=== PATIENT | female | born 1950 | race Caucasian/White ===

== ENCOUNTER → 2016-12-27 | Outpatient (CLI) | payer OTHER ==
[~2016-12-27] MED LIST: ASPCH81X PO; ATOR-24 PO; CALC8.5C PO; CHOL100010 PO; DEXT1TAB50 PO; FLUT50SP37 NAE; FLVHFA110 INH; GLIM1TAB2 PO; HYDR25TA4 PO; LOSA1TAB38 PO; LYSI100014 PO; MONT1TAB5 PO; OMEP40CA41 PO; VNTHFA/IN INH
[2016-12-27 13:15] LABS: ALT/SGPT 30 U/L (12-78); AST/SGOT 15 U/L (15-37); BLOOD UREA NITROGEN 22 mg/dl (7-18); BUN/CREATININE RATIO 18.2 (10-20); CALCIUM 9.6 mg/dl (8.5-10.1); CARBON DIOXIDE 29 mmol/L (21-32); CHLORIDE 104 mmol/L (98-107); GLUCOSE 146 mg/dl (70-99); POTASSIUM 3.6 mmol/L (3.5-5.1); SODIUM 142 mmol/L (136-145)
[2016-12-27 13:17] LABS: ALKALINE PHOSPHATASE 112 U/L (45-117); CHOLESTEROL 167 mg/dl (0-200); CHOLESTEROL/HDL RATIO 2.8; HDL CHOLESTEROL 60 mg/dl; LDL CHOLESTEROL CALCULATED 80 mg/dl; TRIGLYCERIDES 136 mg/dl (0-150); VERY LOW DENSITY LIPOPROT CALC 27 mg/dl
[2016-12-27 13:23] LABS: ESTIMATED AVERAGE GLUCOSE 160 mg/dl; HA1C FLAG Normal (Normal)
[2016-12-27 13:43] LABS: RATIO 8.1 mcg/mg (0-30.0)
== END | disposition home or self-care (01) ==
LOC: C.LABMFLN 08:03
PROVIDERS: ATTEND Family Medicine
DX: I10 Essential (primary) hypertension (principal); E78.00 Pure hypercholesterolemia, unspecified; E11.9 Type 2 diabetes mellitus without complications; M81.0 Age-related osteoporosis without current pathological fracture

== ENCOUNTER → 2017-04-09 | Outpatient (CLI) | payer OTHER | END | disposition home or self-care (01) | LOC: C.LABMFLN 11:07 | PROVIDERS: ATTEND Family Medicine | DX: R35.0 Frequency of micturition (principal); R10.2 Pelvic and perineal pain ==

== ENCOUNTER → 2017-06-27 | Outpatient (CLI) | payer OTHER ==
[2017-06-27 14:32] LABS: BASO % 0.6 %; BASO ABS # 0.03 K/uL (0-0.2); COMPLETE YES; EOS % 2.5 %; HEMATOCRIT 42.3 % (37-47); IG% 0.2 %; LYMPH % 40.1 %; LYMPH ABS # 2.07 K/uL (1.2-3.4); MEAN CELL VOLUME 87.9 fL (80-100); MEAN CORPUSCULAR HEMOGLOBIN 29.9 pg (25-34); MEAN PLATELET VOLUME 10.5 fL (7.4-10.4); MONO % 7.4 %; NEUT % 49.2 %; PLATELET COUNT 250 K/uL (130-400); RED BLOOD COUNT 4.81 M/uL (4.2-5.4); WHITE BLOOD COUNT 5.16 K/uL (4.8-10.8)
[2017-06-27 14:56] LABS: ALT/SGPT 28 U/L (12-78); BLOOD UREA NITROGEN 25 mg/dl (7-18); BUN/CREATININE RATIO 20.7 (10-20); CALCIUM 9.6 mg/dl (8.5-10.1); CARBON DIOXIDE 25 mmol/L (21-32); CHLORIDE 104 mmol/L (98-107); CHOLESTEROL 170 mg/dl (0-200); GLUCOSE 133 mg/dl (70-99); POTASSIUM 3.7 mmol/L (3.5-5.1); SODIUM 140 mmol/L (136-145); TRIGLYCERIDES 101 mg/dl (0-150); VERY LOW DENSITY LIPOPROT CALC 20 mg/dl
[2017-06-27 15:08] LABS: ALB/GLOB RATIO 0.9 (0.9-2); ALKALINE PHOSPHATASE 109 U/L (45-117); AST/SGOT 14 U/L (15-37); CHOLESTEROL/HDL RATIO 3.1; HDL CHOLESTEROL 55 mg/dl; LDL CHOLESTEROL CALCULATED 95 mg/dl
[2017-06-28 08:04] LABS: ESTIMATED AVERAGE GLUCOSE 148 mg/dl; HA1C FLAG Normal (Normal)
--- NOTE | 2017-07-03 07:09 | CODING QUERY MEDICAL NECESSITY ---
SUPPORTING DIAGNOSIS NEEDED Dr. Mayers, A supporting diagnosis is required for the test/procedure performed on this patient in order for us to be reimbursed by the patient's insurance. Please provide a supporting diagnosis for the following test/procedure listed below next to the test name along with your signature. *If there is no additional diagnosis for this patient that would support the following test/procedure please document that below next to the test/procedure. Test(s)/Procedure(s) that require a supporting diagnosis: * ([id number]) VITAMIN D ASSAY DIAGNOSIS: DATE OF SERVICE: 06/27/17 Provider Signature: Date: Thank you Kang Cadet [facility] Information Management Once completed, please kindly fax back to [phone] For questions please call [phone]
== END | disposition home or self-care (01) ==
LOC: C.LABMFLN 08:19
PROVIDERS: ATTEND Family Medicine
DX: I10 Essential (primary) hypertension (principal); E78.00 Pure hypercholesterolemia, unspecified; E11.9 Type 2 diabetes mellitus without complications; R53.83 Other fatigue; E55.9 Vitamin D deficiency, unspecified

== ENCOUNTER → 2017-07-03 | Outpatient (CLI) | payer OTHER | END | disposition home or self-care (01) | LOC: C.PAPS 13:02 | PROVIDERS: ATTEND Family Medicine | DX: Z00.00 Encounter for general adult medical examination without abnormal findings (principal); R10.2 Pelvic and perineal pain ==

== ENCOUNTER → 2017-07-24 | Day surgery (SDC) | payer OTHER ==
[2017-07-16 11:32] VITALS: Ht 165.1 cm; Wt 88.2 kg
[~2017-07-24] VITALS: Ht 165.1 cm; Wt 88.2 kg
[~2017-07-24] MED LIST changes: +500ML BSS 0.3ML EPI 1:1000PF IRRIG ONE; +ACETAMINOPHEN 325 MG TAB PO PRN; +AMVISC PLUS 0.8ML SYRINGE INT OCU ONE; +ATROPINE SULFATE 0.1 MG/ML 5ML SYR IV PRN; +AcetaZOLAMIDE 250 MG TAB PO SCH; +BETAXOLOL HCL 0.25% OP SUSP PER DROP CHARGE OPR SCH; +BRIMONIDINE TART 0.2% OP SOLN PER DROP CHARGE ONE; +BSS FLUSH ONE; +ENDOCOAT 0.85ML SYRINGE INT OCU ONE; +EpHEDrine SULFATE INJ 50 MG/ML AMP IV PRN; +EpINEphrine INJ 1MG/ML AMP 1 MG/ML AMP ONE; +LACTATED RINGER'S 1000ML 500 ML IV SCH; +LIDOCAINE 4% OP SOLN DROP CHARGE ONE; +LIDOCAINE 4% OP SOLN DROP CHARGE OPR SCH; +LIDOCAINE HCL 1% MPF 2 ML VIAL ONE; +MIDAZOLAM HCL 1 MG/ML 2ML VIAL ONE; +MIX: 4ML BSS 1ML EPI 1:1000 PF INSTIL ONE; +MOXIFLOXACIN OPH SOLN PER DROP CHARGE ONE; +OCUCOAT 1 ML SOLN IO ONE; +ONDANSETRON INJ 2 MG/ML 2 ML VIAL IV PRN; +POVIDONE-IODINE OP SOLN 30 ML BTL ONE; +PROPARACAINE 0.5% OP SOLN PER DROP CHARGE OPR SCH; +TOBRAMYCIN/DEXAMETHASONE OPH OINT PER APPLN CHARGE ONE
--- NOTE | 2017-07-24 06:39 | History & Physical Bridge - [place] ---
H&P Re-Evaluation Bridge Note: I have examined the patient, reviewed the History & Physical and in the interval since the performance of the History & Physical I have noted the following changes of clinical significance: No changes noted
[2017-07-24] MEDS: PHENYLEPHRINE HCL 2.5% OP SOLN PER DROP CHARGE OPR SCH ×2 (06:43→06:52)
[2017-07-24] MEDS: TROPICAMIDE 1% OP SOLN PER DROP CHARGE OPR SCH ×2 (06:44→06:56)
[2017-07-24] MEDS: CYCLOPENTOLATE HCL 1% OP SOLN PER DROP CHARGE OPR SCH ×2 (06:45→06:55)
[2017-07-24] MEDS: MOXIFLOXACIN OPH SOLN PER DROP CHARGE OPR SCH ×2 (06:49→06:57)
--- NOTE | 2017-07-24 07:18 | Discharge Instructions-SurgCtr ---
Discharge Instructions Date of Service Jul 24, 2017. Visit Reason for Visit: Cataract Right Eye Discharge Discharge Diagnosis / Problem: lens implant left eye Discharge Goals Goal(s): Improve function Activity Recommendations Activity Limitations: resume your previous activity Lifting Limitations: no more than 10 pounds Exercise/Sports Limitations: gradually increase as tolerated May Resume Sexual Activity: when tolerated Shower/Bathe: tomorrow Driving or Machine Use: resume 1 day after discharge Anesthesia . Post Anesthesia Instructions: If you have had General Anesthesia or IV Sedation: * Do not drive today. * Resume driving when surgeon permits. * Do not make important decisions or sign legal documents today. * Call surgeon for: 1. Temperature elevations greater than 101 degrees F. 2. Uncontrollable pain. 3. Excessive bleeding. 4. Persistent nausea and vomiting. 5. Medication intolerance (nausea, vomiting or rash). * For nausea and vomiting use only clear liquids such as: tea, soda, bouillon until nausea subsides, then gradually increase diet as tolerated. * If you have any concerns or questions, call your surgeon's office. If physician is unavailable and it is an emergency, call 911 or go to the nearest emergency room. . Instructions / Follow-Up Instructions / Follow-Up ACTIVITY RECOMMENDATIONS: * Light activities. * Mild irritation and blurred vision are common for the first few days. * You may walk outside, read, watch television. * Redness around the white part of the eye is common. MEDICATIONS: Resume previous medications unless instructed otherwise by your surgeon. * Take white Diamox (Acetazolamide) tablet at 1 pm today. Start all eye drops at 1 pm today: * Eye drops (today and tomorrow): Prednisone - one drop in operative eye every 3 hours while awake Ofloxacin - one drop in operative eye every 3 hours while awake SPECIAL CARE INSTRUCTIONS: * Tape plastic shield over eye to sleep at night. Call your doctor at with any concerns or problems. FOLLOW UP VISIT: Follow-up with Dr Falk at [place] office as scheduled. Diet Recommendations Home Diet: no limitations Procedures Procedures Performed: cataract extraction with lens implant Pending Studies Studies pending at discharge: no Medical Emergencies . Who to Call and When: Medical Emergencies: If at any time you feel your situation is an emergency, please call 911 immediately. . Non-Emergent Contact Non-Emergency issues call your: Charter Representative Call Non-Emergent contact if: your pain is not controlled [phone] . . "Provider Documentation" section prepared by Pola Falk. .
--- NOTE | 2017-07-24 07:20 | [facility] Operative Report ---
Operative Report Date of Service Jul 24, 2017. Operative Report 1. PREOPERATIVE DIAGNOSIS: Senile nuclear cataract, right eye. 2. POSTOPERATIVE DIAGNOSIS: Senile nuclear cataract, right eye. 3. PROCEDURE: Phacoemulsification of right cataract with posterior chamber lens implant, type Bausch [employer] Lomb, model Hoya [id number], power +15.0 diopters. ANESTHESIA: Local standby. SURGEON: Dr. Falk. COMPLICATIONS: None. OPERATING TIME: 10 minutes. 4. OPERATION AND FINDINGS: DESCRIPTION OF PROCEDURE: The right pupil was dilated. The anesthetic was administered using a topical technique. The right eye was prepped and draped. A speculum was placed. A clear corneal incision was formed. The chamber was filled with Amvisc Plus and Endocoat. Epinephrine solution was used. A paracentesis was placed. A capsulorrhexis was performed. The nucleus was hydrodissected. The lens was removed with phacoemulsification. Time was 3.77 seconds. The aspiration unit was used to remove the cortex. The capsule was filled with Amvisc Plus. The lens implant was folded and placed into the capsule. The incision was hydrated. The Amvisc was aspirated. The wound was secure. The chamber was deep. The pupil was round. Brimonidine, TobraDex ointment and Vigamox solution were placed. The speculum was removed. The patient was returned to the Recovery Room in stable condition. I attest to the content of the Intraoperative Record and any orders documented therein. Any exceptions are noted below. The scribe's documentation has been prepared in my presence, under my direction and personally reviewed by me in its entirety. I confirm that the note above accurately reflects all work, treatment, procedures, and medical decision making performed by me. I personally scribed for Pola Falk M.D. (MARLON) on 07/24/17 at 07:20. Electronically submitted by Cecelia Grullon ([email or web address]).
--- NOTE | 2017-07-24 07:50 | Anesthesia Progress Nt - [facility] ---
Anesthesia Post Op Note Date & Time Jul 24, 2017 at 07:50 Vital Signs Pain Intensity: 0 Vital Signs Past 12 Hours Date Time Temp Pulse Resp B/P (MAP) Pulse Ox O2 Delivery O2 Flow Rate FiO2 07/24/17 07:22 36.3 67 16 147/70 (95) 97 Room Air Notes Mental Status: alert / awake / arousable, participated in evaluation Pt Amnestic to Procedure: Yes Nausea / Vomiting: adequately controlled Pain: adequately controlled Airway Patency, RR, SpO2: stable & adequate BP & HR: stable & adequate Hydration State: stable & adequate Anesthetic Complications: no major complications apparent
[2017-07-24 07:57] VITALS: BP 123/69; PULSE 62; O2SAT 98
== END | disposition home or self-care (01) ==
LOC: X.SURG 06:07
PROVIDERS: ATTEND Specialist
DX: H25.11 Age-related nuclear cataract, right eye (principal); I10 Essential (primary) hypertension; E03.9 Hypothyroidism, unspecified; Z79.82 Long term (current) use of aspirin; Z79.899 Other long term (current) drug therapy

== ENCOUNTER → 2017-08-07 | Day surgery (SDC) | payer OTHER ==
[2017-07-31 10:09] VITALS: Ht 165.1 cm; Wt 88.2 kg
[~2017-08-07] VITALS: Ht 165.1 cm; Wt 88.2 kg
[~2017-08-07] MED LIST changes: +BETAXOLOL HCL 0.25% OP SUSP PER DROP CHARGE OPL SCH; -BETAXOLOL HCL 0.25% OP SUSP PER DROP CHARGE OPR SCH; +CYCLOPENTOLATE HCL 1% OP SOLN PER DROP CHARGE OPL SCH; +LIDOCAINE 4% OP SOLN DROP CHARGE OPL SCH; -LIDOCAINE 4% OP SOLN DROP CHARGE OPR SCH; +MOXIFLOXACIN OPH SOLN PER DROP CHARGE OPL SCH; -ONDANSETRON INJ 2 MG/ML 2 ML VIAL IV PRN; +PHENYLEPHRINE HCL 2.5% OP SOLN PER DROP CHARGE OPL SCH; +PROPARACAINE 0.5% OP SOLN PER DROP CHARGE OPL SCH; -PROPARACAINE 0.5% OP SOLN PER DROP CHARGE OPR SCH; +TROPICAMIDE 1% OP SOLN PER DROP CHARGE OPL SCH
[2017-08-07] MEDS: PHENYLEPHRINE HCL 2.5% OP SOLN PER DROP CHARGE OPL SCH ×2 (09:09→09:14)
[2017-08-07] MEDS: TROPICAMIDE 1% OP SOLN PER DROP CHARGE OPL SCH ×2 (09:11→09:16)
[2017-08-07] MEDS: CYCLOPENTOLATE HCL 1% OP SOLN PER DROP CHARGE OPL SCH ×2 (09:12→09:17)
[2017-08-07] MEDS: MOXIFLOXACIN OPH SOLN PER DROP CHARGE OPL SCH ×2 (09:13→09:29)
--- NOTE | 2017-08-07 10:11 | Discharge Instructions-SurgCtr ---
Discharge Instructions Date of Service Aug 07, 2017. Visit Reason for Visit: Cataract Left Eye Discharge Discharge Diagnosis / Problem: lens implant left eye Discharge Goals Goal(s): Improve function Activity Recommendations Activity Limitations: resume your previous activity Lifting Limitations: no more than 10 pounds Exercise/Sports Limitations: gradually increase as tolerated May Resume Sexual Activity: when tolerated Shower/Bathe: tomorrow Driving or Machine Use: resume 1 day after discharge Anesthesia . Post Anesthesia Instructions: If you have had General Anesthesia or IV Sedation: * Do not drive today. * Resume driving when surgeon permits. * Do not make important decisions or sign legal documents today. * Call surgeon for: 1. Temperature elevations greater than 101 degrees F. 2. Uncontrollable pain. 3. Excessive bleeding. 4. Persistent nausea and vomiting. 5. Medication intolerance (nausea, vomiting or rash). * For nausea and vomiting use only clear liquids such as: tea, soda, bouillon until nausea subsides, then gradually increase diet as tolerated. * If you have any concerns or questions, call your surgeon's office. If physician is unavailable and it is an emergency, call 911 or go to the nearest emergency room. . Instructions / Follow-Up Instructions / Follow-Up ACTIVITY RECOMMENDATIONS: * Light activities. * Mild irritation and blurred vision are common for the first few days. * You may walk outside, read, watch television. * Redness around the white part of the eye is common. MEDICATIONS: Resume previous medications unless instructed otherwise by your surgeon. * Take white Diamox (Acetazolamide) tablet at 1 pm today. Start all eye drops at 1 pm today: * Eye drops (today and tomorrow): Prednisone - one drop in operative eye every 3 hours while awake Ofloxacin - one drop in operative eye every 3 hours while awake SPECIAL CARE INSTRUCTIONS: * Tape plastic shield over eye to sleep at night. Call your doctor at with any concerns or problems. FOLLOW UP VISIT: Follow-up with Dr Falk at [place] office as scheduled. Diet Recommendations Home Diet: no limitations Procedures Procedures Performed: cataract extractions with lens implant Pending Studies Studies pending at discharge: no Medical Emergencies . Who to Call and When: Medical Emergencies: If at any time you feel your situation is an emergency, please call 911 immediately. . Non-Emergent Contact Non-Emergency issues call your: [employer] Tier Call Non-Emergent contact if: your pain is not controlled [phone] . . "Provider Documentation" section prepared by Pola Falk. .
--- NOTE | 2017-08-07 10:12 | [facility] Operative Report ---
Operative Report Date of Service Aug 07, 2017. Operative Report 1. PREOPERATIVE DIAGNOSIS: Senile nuclear cataract, left eye. 2. POSTOPERATIVE DIAGNOSIS: Senile nuclear cataract, left eye. 3. PROCEDURE: Phacoemulsification of left cataract with posterior chamber lens implant, type Bausch & Lomb, model Hoya [id number], power +18.0 diopters. ANESTHESIA: Local standby. SURGEON: Dr. Falk. COMPLICATIONS: None. OPERATING TIME: 10 minutes. 4. OPERATION AND FINDINGS: DESCRIPTION OF PROCEDURE: The left pupil was dilated. The anesthetic was administered using a topical technique. The left eye was prepped and draped. A speculum was placed. A clear corneal incision was formed. The chamber was filled with Amvisc Plus and Endocoat. Epinephrine solution was used. A paracentesis was placed. A capsulorrhexis was performed. The nucleus was hydrodissected. The lens was removed with phacoemulsification. Time was 2.17 seconds. The aspiration unit was used to remove the cortex. The capsule was filled with Amvisc Plus. The lens implant was folded and placed into the capsule. The incision was hydrated. The Amvisc was aspirated. The wound was secure. The chamber was deep. The pupil was round. Brimonidine, TobraDex ointment and Vigamox solution were placed. The speculum was removed. The patient was returned to the Recovery Room in stable condition. I attest to the content of the Intraoperative Record and any orders documented therein. Any exceptions are noted below. The scribe's documentation has been prepared in my presence, under my direction and personally reviewed by me in its entirety. I confirm that the note above accurately reflects all work, treatment, procedures, and medical decision making performed by me. I personally scribed for Pola Falk M.D. (MARLON) on 08/07/17 at 10:12. Electronically submitted by Cecelia Grullon ([email or web address]).
[2017-08-07 10:15] VITALS: TEMP 36.5
--- NOTE | 2017-08-07 10:30 | Anesthesia Progress Nt - [facility] ---
Anesthesia Post Op Note Date & Time Aug 07, 2017 at 10:30 Vital Signs Pain Intensity: 4.0 Vital Signs Past 12 Hours Date Time Temp Pulse Resp B/P (MAP) Pulse Ox O2 Delivery O2 Flow Rate FiO2 08/07/17 10:15 36.5 61 16 117/74 (88) 99 Room Air 08/07/17 09:00 36.6 69 18 152/86 (108) 95 Room Air Notes Mental Status: alert / awake / arousable, participated in evaluation Pt Amnestic to Procedure: Yes Nausea / Vomiting: adequately controlled Pain: adequately controlled Airway Patency, RR, SpO2: stable & adequate BP & HR: stable & adequate Hydration State: stable & adequate Anesthetic Complications: no major complications apparent
[2017-08-07 10:40] VITALS: BP 126/76; PULSE 54; O2SAT 99
== END | disposition home or self-care (01) ==
LOC: X.SURG 08:28
PROVIDERS: ATTEND Specialist
DX: H25.12 Age-related nuclear cataract, left eye (principal); I10 Essential (primary) hypertension

== ENCOUNTER → 2017-09-05 | Outpatient (CLI) | payer OTHER ==
[~2017-09-05] MED LIST changes: -500ML BSS 0.3ML EPI 1:1000PF IRRIG ONE; -ACETAMINOPHEN 325 MG TAB PO PRN; -AMVISC PLUS 0.8ML SYRINGE INT OCU ONE; -ATROPINE SULFATE 0.1 MG/ML 5ML SYR IV PRN; -AcetaZOLAMIDE 250 MG TAB PO SCH; -BETAXOLOL HCL 0.25% OP SUSP PER DROP CHARGE OPL SCH; -BRIMONIDINE TART 0.2% OP SOLN PER DROP CHARGE ONE; -BSS FLUSH ONE; -CYCLOPENTOLATE HCL 1% OP SOLN PER DROP CHARGE OPL SCH; -ENDOCOAT 0.85ML SYRINGE INT OCU ONE; -EpHEDrine SULFATE INJ 50 MG/ML AMP IV PRN; -EpINEphrine INJ 1MG/ML AMP 1 MG/ML AMP ONE; -LACTATED RINGER'S 1000ML 500 ML IV SCH; -LIDOCAINE 4% OP SOLN DROP CHARGE ONE; -LIDOCAINE 4% OP SOLN DROP CHARGE OPL SCH; -LIDOCAINE HCL 1% MPF 2 ML VIAL ONE; -MIDAZOLAM HCL 1 MG/ML 2ML VIAL ONE; -MIX: 4ML BSS 1ML EPI 1:1000 PF INSTIL ONE; -MOXIFLOXACIN OPH SOLN PER DROP CHARGE ONE; -MOXIFLOXACIN OPH SOLN PER DROP CHARGE OPL SCH; -OCUCOAT 1 ML SOLN IO ONE; -PHENYLEPHRINE HCL 2.5% OP SOLN PER DROP CHARGE OPL SCH; -POVIDONE-IODINE OP SOLN 30 ML BTL ONE; -PROPARACAINE 0.5% OP SOLN PER DROP CHARGE OPL SCH; -TOBRAMYCIN/DEXAMETHASONE OPH OINT PER APPLN CHARGE ONE; -TROPICAMIDE 1% OP SOLN PER DROP CHARGE OPL SCH
--- NOTE | 2017-09-05 13:11 | DIAGNOSTIC IMAGING REPORT ---
ART DOP LOWER EXT BILAT CLINICAL HISTORY: 67 years-old Female presenting with RAYNAUD'S SYNDROME. TECHNIQUE: Real-time grayscale and color and spectral Doppler ultrasound imaging of the bilateral lower extremity arteries was performed. Measurements calculated based on NASCET criteria. COMPARISON: None. FINDINGS: Right: Common femoral artery: Patent. Peak systolic velocity 120 cm/s. Superficial femoral artery: Patent. Peak systolic velocity 96 cm/s. Popliteal artery: Patent. Peak systolic velocity 77 cm/s. Anterior tibial artery: Patent. Peak systolic velocity 54 cm/s. Posterior tibial artery: Patent. Peak systolic velocity 87 cm/s. Dorsalis pedis: Patent. Peak systolic velocity 47 cm/s. Peroneal artery: Patent. Peak systolic velocity 53 cm/s. Left: Common femoral artery: Patent. Peak systolic velocity 91 cm/s. Superficial femoral artery: Patent. Peak systolic velocity 88 cm/s. Popliteal artery: Patent. Peak systolic velocity 69 cm/s. Anterior tibial artery: Patent. Peak systolic velocity 63 cm/s. Posterior tibial artery: Patent. Peak systolic velocity 74 cm/s. Dorsalis pedis: Patent. Peak systolic velocity 64 cm/s. Peroneal artery: Patent. Peak systolic velocity 48 cm/s. FLOR Brachial: Right: 138 mmHg, Left: 134 mmHg. Ankle (Posterior tibial): Right: 155 mmHg, Left: 139 mmHg. Ankle (Dorsalis pedis): Right: 139 mmHg, Left: 147 mmHg. Ankle/Brachial Index: Right: 1.01-1.12, Left: 1.01-1.07. Reference ranges: Normal FLOR 1.0-1.4; 0.9-0.99 borderline; less than 0.9 abnormal. IMPRESSION: 1. No hemodynamically significant stenosis seen within the lower extremity arteries. 2. Normal ankle-brachial indices. Electronically signed by: Jamil Zendejas M.D. 09/05/2017 1:10 PM Dictated Date/Time: 09/05/2017 1:07 PM
== END | disposition home or self-care (01) ==
LOC: C.ULTR 11:46
PROVIDERS: ATTEND Podiatrist
DX: E11.51 Type 2 diabetes mellitus with diabetic peripheral angiopathy without gangrene (principal); I73.00 Raynaud's syndrome without gangrene

== ENCOUNTER → 2018-01-21 | Outpatient (CLI) | payer OTHER ==
[2018-01-21 14:50] LABS: ALBUMIN 3.9 gm/dl (3.4-5.0); ALT/SGPT 25 U/L (12-78); AST/SGOT 16 U/L (15-37); BLOOD UREA NITROGEN 28 mg/dl (7-18); CALCIUM 9.3 mg/dl (8.5-10.1); CARBON DIOXIDE 27 mmol/L (21-32); CREATININE 1.27 mg/dl (0.60-1.20); GLUCOSE 130 mg/dl (70-99); POTASSIUM 3.3 mmol/L (3.5-5.1); SODIUM 137 mmol/L (136-145)
[2018-01-21 14:55] LABS: ALKALINE PHOSPHATASE 112 U/L (45-117); CHOLESTEROL 186 mg/dl (0-200); LDL CHOLESTEROL CALCULATED 101 mg/dl; TOTAL PROTEIN 8.2 gm/dl (6.4-8.2)
[2018-01-21 15:56] LABS: CREATININE RANDOM URINE 44.8 mg/dl
== END | disposition home or self-care (01) ==
LOC: C.LABMFLN 08:57
PROVIDERS: ATTEND Family Medicine
DX: E78.00 Pure hypercholesterolemia, unspecified (principal); E11.9 Type 2 diabetes mellitus without complications; M81.0 Age-related osteoporosis without current pathological fracture

== ENCOUNTER → 2018-02-17 | Outpatient (CLI) | payer OTHER | END | disposition home or self-care (01) | LOC: C.LABMFLN 10:32 | PROVIDERS: ATTEND Family Medicine | DX: E87.6 Hypokalemia (principal) ==

== ENCOUNTER → 2018-07-08 | Outpatient (CLI) | payer OTHER ==
[2018-07-08 13:36] LABS: ALBUMIN 3.7 gm/dl (3.4-5.0); ALKALINE PHOSPHATASE 91 U/L (45-117); ALT/SGPT 30 U/L (12-78); AST/SGOT 18 U/L (15-37); BLOOD UREA NITROGEN 30 mg/dl (7-18); CALCIUM 9.5 mg/dl (8.5-10.1); CARBON DIOXIDE 26 mmol/L (21-32); CHOLESTEROL 145 mg/dl (0-200); CREATININE 1.23 mg/dl (0.60-1.20); GLUCOSE 131 mg/dl (70-99); LDL CHOLESTEROL CALCULATED 67 mg/dl; POTASSIUM 3.9 mmol/L (3.5-5.1); SODIUM 138 mmol/L (136-145); TOTAL PROTEIN 7.4 gm/dl (6.4-8.2)
== END ==
LOC: C.LABMFLN 07:31
PROVIDERS: ATTEND Family Medicine
DX: E78.00 Pure hypercholesterolemia, unspecified (principal); E11.9 Type 2 diabetes mellitus without complications; M81.0 Age-related osteoporosis without current pathological fracture; J45.909 Unspecified asthma, uncomplicated

== ENCOUNTER 2025-08-26 11:20 | Inpatient (IN) ==
--- NOTE | 2025-08-26 11:48 | Emergency Department Note ---
Impression & Plan Back pain, Ambulatory dysfunction ED Provider Note NAME: NOHEMY WAGNER AGE: 75 SEX: F : 1950 ARRIVES VIA: Walk-In INFORMANT: Patient ED PROVIDER(S): Lawrence Rasheed DO CHIEF COMPLAINT: Left back pain radiating into the leg HPI: Patient is a 74-year-old female with a past medical history of cholelithiasis, back pain, sinusitis, GERD, lymphadenopathy who presents to the ER for left lower back pain radiating into her left thigh and leg. This started last Saturday. She denies any weakness or numbness. Pain significantly worse with twisting, turning, and bending. She is able to urinate and move her bowels. No chest pain or shortness of breath. No dysuria, urgency, or frequency. She notes she was seen by her PCP given Toradol and discharged. She was seen at [facility] yesterday had CTs and was given Percocet and steroids and discharged and still is unable to get around at home due to pain. She called her doctor and once again referred her back to the ER. She notes that her doctor thought that she needed an MRI but did not order one for her. ADDITIONAL HISTORY OBTAINED: Per HPI Chronic Medical/Social Conditions Affecting Care: Per HPI PAST MEDICAL HISTORY:See Below PAST SURGICAL HISTORY:See Below FAMILY HISTORY:See Below SOCIAL HISTORY:See Below HOME MEDICATIONS:See Below ALLERGIES:See Below VITALS:See Below PHYSICAL EXAMINATION: GENERAL: Sitting up in bed, alert, well appearing, well nourished, no distress, non-toxic EYE EXAM: normal conjunctiva. PERRL and EOM's grossly intact. OROPHARYNX: no exudate, no erythema, lips, buccal mucosa, and tongue normal and mucous membranes are moist NECK: supple, no nuchal rigidity, no adenopathy, non-tender LUNGS: Clear to auscultation. Normal chest wall mechanics HEART: no murmurs, S1 normal and S2 normal ABDOMEN: abdomen soft, non-tender, normo-active bowel sounds, no masses, no rebound or guarding. BACK: Back is symmetrical on inspection and there is no deformity, no midline tenderness, no CVA tenderness. SKIN: no rashes and no bruising UPPER EXTREMITIES: upper extremities are grossly normal. LOWER EXTREMITIES: No pitting edema. NEURO EXAM: Normal sensorium, cranial nerves II-XII intact, normal speech, no gross weakness of arms, no weakness of legs. No drift. Finger to nose intact. Gross sensation intact. MEDICAL DECISION MAKING: Patient is a 75-year-old female with a past medical history of back pain, GERD, renal insufficiency who presents to the ER for back pain which is present since last Saturday. She was seen on 2 different occasions for this back pain that is her third visit. She notes pain is severe and she cannot sleep all night. She having trouble getting up and moving around. She was using Percocet last night and it was not touching her pain in combination with steroids. She has been having vomiting and has a very upset stomach. Denies any focal weakness or numbness. No fevers. No red flags. No trauma. External records were reviewed from [facility] from [place] on 08/25/2025 at 9:[address] abdomen pelvis without any acute pathology and x-rays of the hip with arthritis bilaterally. Patient was given multiple dose of IV narcotics as when she presented she was shaking and pain. Pressures were initially 200s. They have trended down. Case was discussed with the hospitalist for further evaluation management and treatment. Consults/Care Managements Discussions: Per [facility] Triage Nursing notes reviewed. Limited review of prior medical records performed Vital Signs: reviewed and remarkable for HTN Differential diagnosis: Musculoskeletal, disc herniation, fracture, metastatic disease, cord compression, discitis, sciatica, cauda equina, infection, aortic disease, renal colic, gastrointestinal, as well as other pathologies. ER treatment provided: See below Diagnostics interpreted by me include EKG and cardiac monitoring as listed below: -Cardiac Monitoring: An order was placed for continuous cardiac monitoring. The monitor shows a rate of 80 with sinus rhythm. -ECG: none -Laboratory studies:Interpreted by me as stated above in MDM and shown below. Imaging studies: Xrays: As interpreted by me: X-rays of lumbar spine showed no acute fracture or dislocation CTs show: none Procedures:none Critical Care: None Past Med/Surg History Problem List (Updated 08/26/25 @ 14:42 by Lawrence Rasheed DO) Ambulatory dysfunction (Acute) Back pain (Acute) Vomiting Intractable low back pain Dupuytrens contracture Trigger finger, left middle finger Cholelithiasis Chest pain (Acute) Vitamin B 12 deficiency Allergic rhinitis due to dust mite Allergic rhinitis due to pollen Mid back pain Diaphoresis Alopecia Right low back pain Intermittent palpitations Onychomycosis Low back pain Chronic right hip pain Asthma COVID-19 virus infection Acute sinusitis Osteoarthritis of right knee Bilateral hip pain Inflamed seborrheic keratosis Changing skin lesion Dysphagia Chronic GERD Had EGD with esophageal dilation 09/24/2024. Colon cancer screening Inflamed seborrheic keratosis Hypothyroidism Skin lesion of left ear Chronic sinusitis LAD (lymphadenopathy), anterior cervical Renal cysts, acquired, bilateral Left kidney mass Shingles Asymptomatic microscopic hematuria Flank pain Acute renal insufficiency Hypertension Asymptomatic age-related postmenopausal state Encounter for mammogram to establish baseline mammogram Medicare annual wellness visit, subsequent Left hip pain Left knee pain Memory loss Encounter for screening mammogram for high-risk patient Medicare annual wellness visit, subsequent Encounter for gynecological examination without abnormal finding History of benign ovarian tumor ovarian fibroma, TLH/BSO 01/2019 Right lower quadrant abdominal pain Medicare annual wellness visit, subsequent Adjustment reaction (Acute) Allergic rhinitis (Acute) Asthma, mild intermittent (Acute) Cataract, bilateral (Acute) Cheilitis (Acute) Controlled diabetes mellitus with chronic kidney disease (Acute) GERD without esophagitis (Acute) Hypercholesterolemia (Acute) Benign essential hypertension (Acute) Hypokalemia (Acute) Left shoulder pain (Acute) Lumbar radiculopathy (Acute) Migraine headache (Acute) Mixed incontinence urge and stress (Acute) Osteoporosis (Acute) Peripheral neuropathy (Acute) Postmenopausal atrophic vaginitis (Acute) Seborrheic dermatitis of scalp (Acute) Visit for screening mammogram (Acute) Ingrown nail of great toe of right foot (Acute) Acquired hallux valgus of right foot (Acute) Type 2 diabetes mellitus with diabetic neuropathy (Acute) Hallux valgus (acquired), left foot (Acute) Medical History Chronic ulcer of right great toe Ovarian fibroma Surgical History Trigger finger Hx of bilateral salpingo-oophorectomy History of robot-assisted laparoscopic hysterectomy Status post repair of nerve History of tonsillectomy H/O shoulder replacement H/O oral surgery History of carpal tunnel release Family History Other Brain cancer Breast cancer Cervical cancer Colorectal cancer Diabetes Endometriosis Heart disease Hepatic disorder Hyperlipidemia Hypertension Oral cancer Ovarian cancer Rectal cancer Uterine cancer Social History Smoking Status: Never smoker Hx Alcohol Use: Yes Alcohol type: wine Hx Substance Use: No Preferred Language: Lao Communication Ability: Effective Visual Impairment: No Limitations Hearing Ability: Normal Tugboat Pilot Required: No Beliefs That Will Affect Care: None marital status: Current Living Situation: Spouse current occupational status: employed 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 Feels Safe at Home: Yes Childhood Exposure to Second-Hand Smoke: Yes caffeine: No Dental Care, Regularly: Yes Physical Activity Frequency: 1-2 Times per Week Seatbelt Use: always Allergies Allergies Allergy/AdvReac Type Severity Reaction Status Date / Time pneumococcal vaccine Allergy Intermediate ARM Verified 08/23/25 15:42 SWELLING AT INSERTION erythromycin base Allergy Unknown "DOESN'T Verified 08/23/25 15:42 REMEMBER" lisinopril Allergy Unknown "DOESN'T Verified 08/23/25 15:42 REMEMBER" propoxyphene Allergy Unknown "UNSURE" Verified 08/23/25 15:42 telithromycin Allergy Unknown "UNSURE" Verified 08/23/25 15:42 benzonatate AdvReac Intermediate SWEATING/SICK/HEART Verified 08/23/25 15:42 RACES Home Meds Home Medications Medication Instructions Recorded Confirmed cholecalciferol (vitamin D3) 25 25 mcg PO DAILY 08/17/24 08/26/25 mcg (1,000 unit) capsule aspirin 81 mg tablet,delayed 81 mg PO 3XWK 02/17/25 08/26/25 release (Adult Aspirin Regimen) cyanocobalamin (vitamin B-12) 5,000 mcg sublingual DAILY 03/16/25 08/26/25 5,000 mcg/mL sublingual drops (Vitamin B-12) fluticasone propionate 110 2 puff inhalation QAM 08/26/25 08/26/25 mcg/actuation HFA aerosol inhaler Previous Rx's Medication Instructions Recorded blood-glucose meter ([employer] #1 ea 03/03/20 Ultra2 Meter kit) blood sugar diagnostic #100 ea 07/17/21 lancets 33 gauge (OneTouch Delica #100 ea 07/17/21 Lancets) lysine 1,000 mg tablet 1,000 mg PO DAILY #90 tabs 08/18/21 albuterol sulfate 90 mcg/actuation 2 puff inhalation Q4H PRN 02/01/22 aerosol inhaler shortness of breath or wheezing #25.5 grams losartan 100 mg tablet 100 mg PO DAILY #90 tabs 02/17/24 atorvastatin 40 mg tablet 40 mg PO DAILY #90 tabs 02/24/24 celecoxib 200 mg capsule (Celebrex) 200 mg PO PRN #90 caps 08/24/24 esomeprazole magnesium 40 mg 40 mg PO DAILY #90 caps 03/29/25 capsule,delayed release hydrochlorothiazide 25 mg tablet 12.5 mg (1/2 x 25 mg) PO DAILY #45 05/19/25 tabs metformin 500 mg tablet,extended 500 mg PO DAILY #90 tabs 08/04/25 release 24 hr potassium chloride 10 mEq 10 meq PO DAILY #90 tabs 08/04/25 tablet,extended release azelastine 137 mcg (0.1 %) nasal See Rx Instructions .Route 08/12/25 spray .COMPLEX #30 mL glimepiride 1 mg tablet 1 mg PO .COMPLEX #270 tabs 08/12/25 lidocaine 4 % topical patch 1 patch topical DAILY PRN pain #30 08/26/25 ea ondansetron 4 mg disintegrating 4 mg PO Q8H PRN nausea and 08/26/25 tablet vomiting #10 tabs oxycodone-acetaminophen 5 mg-325 1 tab PO Q8H PRN pain #6 tabs 08/26/25 mg tablet prednisone 10 mg tablet 20 mg (2 x 10 mg) PO DAILY 7 days 08/26/25 #14 tabs Results & Data (ED) Vital Signs Vital Signs - 24 hr 08/26/25 11:29 08/26/25 12:32 08/26/25 13:15 Temperature 36.3 C L Temperature Source Temporal Artery Scan Pulse Rate 65 Pulse Rate [Apical] 82 Respiratory Rate 16 20 Blood Pressure 201/128 H Blood Pressure [Left Arm] 172/86 H Blood Pressure Mean 152 Blood Pressure Mean [Left Arm] 114 Pulse Oximetry 100 98 92 Oxygen Delivery Method Room Air Room Air Room Air Sepsis Recent Fever Within 48 Hours No Sepsis New/Unexplained Change in Mental Status No Sepsis Action Taken by Nursing No Action Required 08/26/25 13:44 Temperature Temperature Source Pulse Rate 50 L Pulse Rate [Apical] Respiratory Rate Blood Pressure Blood Pressure [Left Arm] Blood Pressure Mean Blood Pressure Mean [Left Arm] Pulse Oximetry Oxygen Delivery Method Sepsis Recent Fever Within 48 Hours Sepsis New/Unexplained Change in Mental Status Sepsis Action Taken by Nursing Laboratory Data 08/26/25 11:49 08/26/25 11:49 Lab Results 08/26/25 08/26/25 Range/Units 11:49 12:00 WBC 7.06 (4.8-10.8) K/ul RBC 4.40 (4.20-5.40) M/uL Hgb 12.6 (12.0-16.0) g/dl Hct 38.7 (37.0-47.0) % MCV 88.0 (80.0-100.0) fL MCH 28.6 (25.0-34.0) pg MCHC 32.6 (32.0-36.0) g/dL RDW Std Deviation 43.6 (36.4-46.3) fL RDW Coeff of Aj 13.5 (11.5-14.5) % Plt Count 261 (130-400) K/uL MPV 10.0 (9.4-12.4) fL Immature Gran % (Auto) 0.4 % Neut % (Auto) 60.9 % Lymph % (Auto) 31.4 % Emmet % (Auto) 6.5 % Eos % (Auto) 0.4 % Baso % (Auto) 0.4 % Neut # (Auto) 4.29 (1.40-6.50) K/uL Lymph # (Auto) 2.22 (1.20-3.40) K/uL Emmet # (Auto) 0.46 (0.11-0.59) K/uL Eos # (Auto) 0.03 (0.00-0.50) K/uL Baso # (Auto) 0.03 (0.00-0.20) K/uL Immature Gran # (Auto) 0.03 (0.01-0.20) K/uL Sodium 136 (136-145) mmol/L Potassium 3.8 (3.5-5.1) mmol/L Chloride 101 (98-107) mmol/L Carbon Dioxide 24 (21-32) mmol/L Anion Gap 11 (3-11) BUN 31 H (6-23) mg/dl Creatinine 1.33 H (0.6-1.2) mg/dl Est Cr Clr Drug Dosing Not Reportable eGFR 41.21 BUN/Creatinine Ratio 23.3 H (10-20) Glucose 99 (70-99(Fasting)) mg/dl Calcium 10.2 (8.6-10.3) mg/dl Total Bilirubin 0.5 (0.2-1.0) mg/dl AST 24 (13-39) U/L ALT 22 (7-52) U/L Alkaline Phosphatase 81 (34-104) U/L Total Protein 8.3 (6.0-8.3) gm/dl Albumin 4.5 (3.4-5.0) gm/dl Globulin 3.8 (2.5-4.0) gm/dl Albumin/Globulin Ratio 1.2 (0.9-2) Lipase 12 (11-82) U/L Urine Color Yellow Urine Appearance Clear (Clear) Urine pH 7.0 (4.5-7.5) Ur Specific [place] 1.013 (1.000-1.030) Urine Protein Negative (Negative) Urine Glucose (UA) Negative (Negative) Urine Ketones Negative (Negative) Urine Blood Negative (Negative) Urine Nitrite Negative (Negative) Urine Bilirubin Negative (Negative) Urine Urobilinogen Negative (Negative) Ur Leukocyte Esterase Negative (Negative) Urine Comment Administered Medications Discontinued Medications Sodium Chloride (Nss) 1,000 mls @ 999 mls/hr IV .Q1H1M ONE Stop: 08/26/25 13:25 Last Admin: 08/26/25 12:37 Dose: 999 mls/hr Documented By: CRUZ Metoclopramide HCl (Metoclopramide Hcl Inj 5 Mg/Ml 2 Ml Vial) 10 mg IV NOW STA Stop: 08/26/25 12:25 Last Admin: 08/26/25 12:37 Dose: 10 mg Documented By: CRUZ Morphine Sulfate (Morphine Sulfate 4 Mg/Ml 1 Ml Carp\\Vial) 4 mg IV NOW STA Stop: 08/26/25 11:42 Last Admin: 08/26/25 11:54 Dose: 4 mg Documented By: MERYL Morphine Sulfate (Morphine Sulfate 4 Mg/Ml 1 Ml Carp\\Vial) 4 mg IV NOW STA Stop: 08/26/25 12:25 Last Admin: 08/26/25 12:37 Dose: 4 mg Documented By: CRUZ Ondansetron HCl (Ondansetron Inj 2 Mg/Ml 2 Ml Vial) 4 mg IV NOW STA Stop: 08/26/25 11:42 Last Admin: 08/26/25 11:54 Dose: 4 mg Documented By: MERYL Imaging Data Radiologist's Impression: Lumbar Spine X-Ray 08/26/25 11:57 XR lumbar spine 2-3V CLINICAL HISTORY: back pain COMPARISON STUDY: None FINDINGS: There is diffuse degenerative disc disease and facet degeneration most advanced at L4-5 and L5-S1. There is grade 1 anterolisthesis of L4 on 5. No fracture seen. IMPRESSION: 1. No fracture seen. 2. Lumbar degenerative changes. ACT 112: Negative or not required by law. Electronically signed by: Tayo Chandra M.D. 08/26/2025 12:28 PM Discharge Plan Visit Data Chief Complaint: Pain (Generalized) Stated Complaint: PAIN IN L HIP DOWN LEG TO FOOT, BACK PAIN ED Provider: Lawrnece Rasheed Discharge Problem: Back pain, Ambulatory dysfunction Condition: Fair Forms Stand Alone Forms: [facility] go2 media Prescriptions Prescriptions: No Action (DME) blood-glucose meter [OneTouch Ultra2 Meter] Kit See Rx Instructions .ROUTE .MEDSUPPLY Qty: 1 0RF Rx Instructions: Check blood sugar once daily dx :E11.40 (DME) blood sugar diagnostic Strip See Rx Instructions .ROUTE .MEDSUPPLY Qty: 100 3RF Rx Instructions: check blood sugar once daily dx E11.40 (DME) lancets [OneTouch Delica Lancets] 33 gauge misc See Rx Instructions .ROUTE .MEDSUPPLY Qty: 100 5RF Rx Instructions: Check BS once daily Dx E11.9 lysine 1,000 mg tablet 1,000 mg PO DAILY Qty: 90 3RF losartan 100 mg tablet 100 mg PO DAILY Qty: 90 3RF atorvastatin 40 mg tablet 40 mg PO DAILY Qty: 90 3RF celecoxib [Celebrex] 200 mg capsule 200 mg PO PRN Qty: 90 3RF esomeprazole magnesium 40 mg capsule,delayed release(DR/EC) 40 mg PO DAILY Qty: 90 3RF potassium chloride 10 mEq tablet extended release 10 meq PO DAILY Qty: 90 3RF Rx Instructions: FILL COATED POTASSIUM TABLETS easier to swallow metformin 500 mg tablet extended release 24 hr 500 mg PO DAILY Qty: 90 3RF glimepiride 1 mg tablet 1 mg PO .COMPLEX Qty: 270 3RF Rx Instructions: TAKES 1 MG QAM, THEN 2 MG QPM. lidocaine 4 % adhesive patch,medicated 1 patch topical DAILY PRN (Reason: pain) Qty: 30 0RF Rx Instructions: [facility] ER 08/25/25 ondansetron 4 mg tablet,disintegrating 4 mg PO Q8H PRN (Reason: nausea and vomiting) Qty: 10 0RF Rx Instructions: [facility] ER 08/25/25 oxycodone-acetaminophen 5-325 mg tablet 1 tab PO Q8H PRN (Reason: pain) Qty: 6 0RF Rx Instructions: [facility] ER 08/25/25 prednisone 10 mg tablet 20 mg PO DAILY 7 Days Qty: 14 0RF Rx Instructions: [facility] ER 08/25/25 albuterol sulfate 90 mcg/actuation HFA aerosol inhaler 2 puff inhalation Q4H PRN (Reason: shortness of breath or wheezing) Qty: 25.5 3RF aspirin [Adult Aspirin Regimen] 81 mg tablet,delayed release (DR/EC) 81 mg PO 3XWK Rx Instructions: TAKES MON, SAT, & FRI. cholecalciferol (vitamin D3) 25 mcg (1,000 unit) capsule 25 mcg PO DAILY hydrochlorothiazide 25 mg tablet 12.5 mg PO DAILY Qty: 45 3RF azelastine 137 mcg (0.1 %) spray,non-aerosol See Rx Instructions .ROUTE .COMPLEX Qty: 30 5RF Rx Instructions: USE 1-2 SPRAYS EACH NOSTRIL 1-2 TIMES DAILY.; administer into each nostril cyanocobalamin (vitamin B-12) [Vitamin B-12] 5,000 mcg/mL Drops 5,000 mcg SUBLINGUAL DAILY fluticasone propionate 110 mcg/actuation HFA aerosol inhaler 2 puff inhalation QAM Referrals Referrals: Hernesto Mayers MD [Primary Care Provider] - Discharge Problem: Back pain Qualifiers: Back pain location: low back pain Chronicity: acute Back pain laterality: u nspecified Sciatica presence: unspecified whether sciatica present Qualified Code(s): M54.50 - Low back pain, unspecified
[2025-08-26] MEDS: MoRPHine SULFATE 4 MG/ML 1 ML CARP\\VIAL IV STA ×2 (11:54→12:37)
[2025-08-26] MEDS: ONDANSETRON INJ 2 MG/ML 2 ML VIAL IV STA (11:54)
[2025-08-26 12:01] LABS: Hematocrit (blood only) 38.7 % (37.0-47.0); Hemoglobin 12.6 g/dl (12.0-16.0); Immature Granulocytes # (auto) 0.03 K/uL (0.01-0.20); Immature Granulocytes % (auto) 0.4 %; Mean Corpuscular Hemoglobin 28.6 pg (25.0-34.0); Mean Corpuscular Volume 88.0 fL (80.0-100.0); Platelet Count 261 K/uL (130-400); RDW Standard Deviation 43.6 fL (36.4-46.3); Red Blood Count 4.40 M/uL (4.20-5.40); White Blood Count 7.06 K/ul (4.8-10.8)
[2025-08-26 12:10] LABS: Appearance Urine Clear (Clear); Glucose Urine UA Negative (Negative)
[2025-08-26 12:16] LABS: Alanine Aminotransferase 22 U/L (7-52); Albumin Globulin Ratio 1.2 (0.9-2); Albumin Level 4.5 gm/dl (3.4-5.0); Alkaline Phosphatase 81 U/L (34-104); Anion Gap 11 (3-11); Bilirubin,Total 0.5 mg/dl (0.2-1.0); Blood Urea Nitrogen 31 mg/dl (6-23); Calcium 10.2 mg/dl (8.6-10.3); Carbon Dioxide 24 mmol/L (21-32); Chloride 101 mmol/L (98-107); Globulin 3.8 gm/dl (2.5-4.0); Glucose 99 mg/dl (70-99(Fasting)); Lipase 12 U/L (11-82); Potassium 3.8 mmol/L (3.5-5.1); Sodium 136 mmol/L (136-145); Total Protein 8.3 gm/dl (6.0-8.3)
--- NOTE | 2025-08-26 12:30 | XRay Report ---
XR lumbar spine 2-3V CLINICAL HISTORY: back pain COMPARISON STUDY: None FINDINGS: There is diffuse degenerative disc disease and facet degeneration most advanced at L4-5 and L5-S1. There is grade 1 anterolisthesis of L4 on 5. No fracture seen. IMPRESSION: 1. No fracture seen. 2. Lumbar degenerative changes. ACT 112: Negative or not required by law. Electronically signed by: Tayo Chandra M.D. 08/26/2025 12:28 PM
[2025-08-26] MEDS: SODIUM CHLORIDE 0.9% 1,000 ML IV ONE (12:37)
[2025-08-26] MEDS: METOCLOPRAMIDE HCL INJ 5 MG/ML 2 ML VIAL IV STA (12:37)
--- NOTE | 2025-08-26 13:26 | History & Physical Report ---
Date of Service August 26, 2025 Assessment & Plan (1) Intractable low back pain: (2) Left hip pain: (3) Nausea: (4) Type 2 diabetes mellitus: Plan Yolanda is a pleasant 75-year-old woman with past medical history of HTN, T2DM, HLD, CKD, GERD, mild intermittent asthma, allergic rhinitis, alopecia. She presented from home with intractable lower back pain. She states this pain began Monday 08/20 - denies any recent falls, trauma, or inciting event. She describes this as a constant, achy pain that extends from her left lower back into her left hip/groin and radiates down to her left knee. This is exacerbated when lying down. She has been seen by her PCP in [place] ED for this problem. She was referred back to the ED after speaking with her PCP again on day of admission due to uncontrolled pain. She was admitted for pain control, further workup, and PT/OT evaluations. #Intractable low back pain | Left hip pain - unclear etiology but likely herniated disc with lumbar radiculopathy - Will obtain lumbar MRI - Pain regimen: Scheduled Tylenol 1,000 mg Q8h, Dilaudid 0.5-1.0 mg Q4h PRN mod- severe pain, lidocaine patch daily - Start Solu-Medrol 60 mg IV BID - PT/OT consulted #Nausea | Elevated Creatinine - decreased PO intake in setting of severe pain. Had CT A/P at [facility] ED on 08/25 that was unremarkable - Baseline Cr ~1.1, Cr 1.33 on admission - EKG ordered to evaluate QTc - Zofran PRN as long as QTc <500 - IV fluids with NSS at 125 mL/hr overnight - Trend renal function with AM labs. Avoid nephrotoxins - Hold HCTZ #Hypertension - currently uncontrolled, likely due to severe pain. Home regimen of HCTZ 12.5 mg daily, losartan 100 mg daily - Continue losartan - HOLD HCTZ with elevated Cr from baseline - Hydralazine IV as needed with parameters #T2DM - last A1c 7.2% in May 2025 - Hold home regimen - Will use Lantus + SSI while hospitalized - Pharmacy consulted for glycemic management in the setting of IV steroids #HLDcontinue atorvastatin #GERDcontinue PPI #Allergies | Asthmacontinue home inhaler as needed #Vitamin D deficiencycontinue cholecalciferol 25 mcg daily #Vitamin B12 deficiencycontinue cyanocobalamin 5000 mcg daily VTE PPx: Heparin Dispo: Admit to med/tele closer monitoring with IV narcotic use given bradycardia following IV morphine Reviewed outpatient records History of Present Illness Chief Complaint: Intractable back pain Primary Care Provider: Hernesto Mayers MD Yolanda is a pleasant 75-year-old woman with past medical history of HTN, T2DM, HLD, CKD, GERD, mild intermittent asthma, allergic rhinitis, alopecia. She presented from home with intractable lower back pain. She states this pain began Monday 08/20 - denies any recent falls, trauma, or inciting event. She describes this as a constant, achy pain that extends from her left lower back into her left hip/groin and radiates across her anterior thigh down to her left knee. This is worse in the evening, but is not correlated to positioning. She saw her PCP for this pain on Thursday 08/23 and had an IM Toradol injection into her left hip and was given a course of Celebrex; this had no effect. She then presented to the [place] ER yesterday 08/[address] A/P without any acute abnormalities and x-rays of her hip that noted bilateral arthritis but no acute fractures. She was given a dose of IV fentanyl which significantly relieved her pain and she did not have any associated nausea from this. She was given a prescription of Percocet and oral steroids and discharged from their ED. Unfortunately, today she had significant difficulty ambulating secondary to pain and called her PCP who referred her back to the ED. Upon presentation to the ED, she was writhing in pain and her systolic BP was 200. She has been given multiple doses of IV narcotics and her pressure has improved. At the time of my exam, the patient was lying in bed in no acute distress. She is had intermittent nausea with dry heaving since this pain began. She reports she always becomes nauseous when she has significant pain. She has not had any vomiting. She began dry heaving during my evaluation, which she attributes to the IV morphine she received. Vitals on admission significant for hypertension with BP 172/86 and bradycardia with HR 50s; vitals otherwise stable. Labs on admission are significant for mildly elevated BUN and creatinine at 31 and 1.33 respectively. CBC with differential unremarkable. Electrolytes WNL. Liver function WNL. Lipase normal. UA negative. Lumbar x-ray on admission reveals diffuse degenerative disc disease and facet degeneration most advanced at L4-5 and L5-S1 but no fracture seen. We discussed code status, patient wishes to be a full code. Allergies Allergy/AdvReac Type Severity Reaction Status Date / Time pneumococcal vaccine Allergy Intermediate ARM Verified 08/23/25 15:42 SWELLING AT INSERTION erythromycin base Allergy Unknown "DOESN'T Verified 08/23/25 15:42 REMEMBER" lisinopril Allergy Unknown "DOESN'T Verified 08/23/25 15:42 REMEMBER" propoxyphene Allergy Unknown "UNSURE" Verified 08/23/25 15:42 telithromycin Allergy Unknown "UNSURE" Verified 08/23/25 15:42 benzonatate AdvReac Intermediate SWEATING/SICK/HEART Verified 08/23/25 15:42 RACES Home Medications Medication Instructions Recorded Confirmed Type blood-glucose meter (MobFox #1 ea 03/03/20 08/23/25 Rx Ultra2 Meter kit) blood sugar diagnostic #100 ea 07/17/21 08/23/25 Rx lancets 33 gauge (WidbookTouch Delica #100 ea 07/17/21 08/23/25 Rx Lancets) lysine 1,000 mg tablet 1,000 mg PO DAILY #90 tabs 08/18/21 08/26/25 Rx albuterol sulfate 90 mcg/actuation 2 puff inhalation Q4H PRN 02/01/22 08/26/25 Rx aerosol inhaler shortness of breath or wheezing #25.5 grams losartan 100 mg tablet 100 mg PO DAILY #90 tabs 02/17/24 08/26/25 Rx atorvastatin 40 mg tablet 40 mg PO DAILY #90 tabs 02/24/24 08/26/25 Rx cholecalciferol (vitamin D3) 25 25 mcg PO DAILY 08/17/24 08/26/25 History mcg (1,000 unit) capsule celecoxib 200 mg capsule (Celebrex) 200 mg PO PRN #90 caps 08/24/24 08/26/25 Rx aspirin 81 mg tablet,delayed 81 mg PO 3XWK 02/17/25 08/26/25 History release (Adult Aspirin Regimen) cyanocobalamin (vitamin B-12) 5,000 mcg sublingual DAILY 03/16/25 08/26/25 History 5,000 mcg/mL sublingual drops (Vitamin B-12) esomeprazole magnesium 40 mg 40 mg PO DAILY #90 caps 03/29/25 08/26/25 Rx capsule,delayed release hydrochlorothiazide 25 mg tablet 12.5 mg (1/2 x 25 mg) PO DAILY #45 05/19/25 08/26/25 Rx tabs metformin 500 mg tablet,extended 500 mg PO DAILY #90 tabs 08/04/25 08/26/25 Rx release 24 hr potassium chloride 10 mEq 10 meq PO DAILY #90 tabs 08/04/25 08/26/25 Rx tablet,extended release azelastine 137 mcg (0.1 %) nasal See Rx Instructions .Route 08/12/25 08/26/25 Rx spray .COMPLEX #30 mL glimepiride 1 mg tablet 1 mg PO .COMPLEX #270 tabs 08/12/25 08/26/25 Rx fluticasone propionate 110 2 puff inhalation QAM 08/26/25 08/26/25 History mcg/actuation HFA aerosol inhaler lidocaine 4 % topical patch 1 patch topical DAILY PRN pain #30 08/26/25 08/26/25 Rx ea ondansetron 4 mg disintegrating 4 mg PO Q8H PRN nausea and 08/26/25 08/26/25 Rx tablet vomiting #10 tabs oxycodone-acetaminophen 5 mg-325 1 tab PO Q8H PRN pain #6 tabs 08/26/25 08/26/25 Rx mg tablet prednisone 10 mg tablet 20 mg (2 x 10 mg) PO DAILY 7 days 08/26/25 08/26/25 Rx #14 tabs Past Med/Surg History Problem List (Updated 08/26/25 @ 15:31 by Camille Dobbins PA-C) Type 2 diabetes mellitus Nausea Ambulatory dysfunction (Acute) Back pain (Acute) Vomiting Intractable low back pain Dupuytrens contracture Trigger finger, left middle finger Cholelithiasis Chest pain (Acute) Vitamin B 12 deficiency Allergic rhinitis due to dust mite Allergic rhinitis due to pollen Mid back pain Diaphoresis Alopecia Right low back pain Intermittent palpitations Onychomycosis Low back pain Chronic right hip pain Asthma COVID-19 virus infection Acute sinusitis Osteoarthritis of right knee Bilateral hip pain Inflamed seborrheic keratosis Changing skin lesion Dysphagia Chronic GERD Had EGD with esophageal dilation 09/24/2024. Colon cancer screening Inflamed seborrheic keratosis Hypothyroidism Skin lesion of left ear Chronic sinusitis LAD (lymphadenopathy), anterior cervical Renal cysts, acquired, bilateral Left kidney mass Shingles Asymptomatic microscopic hematuria Flank pain Acute renal insufficiency Hypertension Asymptomatic age-related postmenopausal state Encounter for mammogram to establish baseline mammogram Medicare annual wellness visit, subsequent Left hip pain Left knee pain Memory loss Encounter for screening mammogram for high-risk patient Medicare annual wellness visit, subsequent Encounter for gynecological examination without abnormal finding History of benign ovarian tumor ovarian fibroma, TLH/BSO 01/2019 Right lower quadrant abdominal pain Medicare annual wellness visit, subsequent Adjustment reaction (Acute) Allergic rhinitis (Acute) Asthma, mild intermittent (Acute) Cataract, bilateral (Acute) Cheilitis (Acute) Controlled diabetes mellitus with chronic kidney disease (Acute) GERD without esophagitis (Acute) Hypercholesterolemia (Acute) Benign essential hypertension (Acute) Hypokalemia (Acute) Left shoulder pain (Acute) Lumbar radiculopathy (Acute) Migraine headache (Acute) Mixed incontinence urge and stress (Acute) Osteoporosis (Acute) Peripheral neuropathy (Acute) Postmenopausal atrophic vaginitis (Acute) Seborrheic dermatitis of scalp (Acute) Visit for screening mammogram (Acute) Ingrown nail of great toe of right foot (Acute) Acquired hallux valgus of right foot (Acute) Type 2 diabetes mellitus with diabetic neuropathy (Acute) Hallux valgus (acquired), left foot (Acute) Medical History Chronic ulcer of right great toe Ovarian fibroma Surgical History Trigger finger Hx of bilateral salpingo-oophorectomy History of robot-assisted laparoscopic hysterectomy Status post repair of nerve History of tonsillectomy H/O shoulder replacement H/O oral surgery History of carpal tunnel release Family History Other Brain cancer Breast cancer Cervical cancer Colorectal cancer Diabetes Endometriosis Heart disease Hepatic disorder Hyperlipidemia Hypertension Oral cancer Ovarian cancer Rectal cancer Uterine cancer Social History Smoking Status: Never smoker Second Hand Exposure: No; Do You Dip or Chew Tobacco: No; Tobacco Cessation Education Requested by Patient: No Hx Alcohol Use: No Hx Substance Use: No Preferred Language: Syriac Communication Ability: Effective Visual Impairment: No Limitations Hearing Ability: Normal Electrician Telephone Required: No Beliefs That Will Affect Care: None marital status: Current Living Situation: Spouse Current Living Situation Comment: PT LIVES WITH . 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 Skin: Warm, dry. No rashes or peripheral edema noted. Cardiac: Bradycardic rate in 50s and regular rhythm without murmurs gallops or rubs. Pulm: Clear to auscultation bilaterally without wheezes, rales or rhonchi. Normal respiratory effort. 92% on room air. Abdominal: Soft, nontender, nondistended. Bowel sounds present. Neuro: A&O x3. No focal neurological deficits. MSK: Normal active and passive ROM of LLE. Normal strength and sensation in LLE. Back: No midline or paraspinal tenderness to palpation. No bony step-offs. No CVA tenderness bilaterally. Results & Data Results & Data Vital Signs (Past 12 Hours) Vital Signs Temp Pulse Pulse Resp BP BP Pulse Ox 08/26/25 13:15 82 20 172/86 H 92 08/26/25 12:32 98 08/26/25 11:29 97.3 F L 65 16 201/128 H 100 O2 Del Method 08/26/25 13:15 Room Air 08/26/25 12:32 Room Air 08/26/25 11:29 Room Air Laboratory Results Reviewed CBC with differential Reviewed CMP, chemistries Reviewed UA Diagnostic Findings Reviewed lumbar x-ray Code Status & VTE Plan Code Status Full code VTE Prophylaxis Plan VTE Prophylaxis will be ordered: Yes Supervising Physician Co-Signing Physician Notes PA Supervision Note: I personally saw and examined the patient. I verified all blandon points and agree with DAYSI Dobbins with the following exceptions and/or additions: S-this patient is a 75-year-old female with a history of HTN, HLD, GERD, DM2, here with acute onset of left sided severe lower back pain radiating through the buttock and thigh to the knee and slightly down beyond that as a dull ache to the foot. No bowel or bladder dysfunction and she is able to ambulate. It has not responded to outpatient prednisone and NSAIDs, lidocaine patch. No fevers or chills. No injury or fall or heavy lifting. History and ROS otherwise reviewed as above O- Vitals reviewed Gen: AAOx3, NAD HEENT: Anicteric sclerae, EOMI CV: RRR no mgr nl S1S2 Pulm: CTAB no wcr Abd: +BS soft NT ND no masses or hernias Ext: No edema, 2+ DP pulses Skin: No rashes, warm/dry Neuro: Full strength throughout bilateral lower extremities, negative straight leg raise on left, sensation intact to light touch throughout bilateral lower extremities CBC, BMP, lumbar spine x-ray reviewed A/P-25-ozka-old female here with likely HNP in the lumbar spine with lumbar radiculopathy - Obtain MRI of the lumbar spine - IV steroids, IV Dilaudid - Antiemetics for nausea associated with opioids - IV fluids for mild renal insufficiency and hold home HCTZ PG Care Time/CCT Total # of Minutes Spent Total Time Spent with Patient: Total time spent is greater than 50% in coordination of care (as documented) at patient's floor/unit and/or counseling patient: Coding Level of Care Code 34992 INT INP/OBS CARE 3/75MIN Diagnoses Intractable low back pain M54.59 Left hip pain M25.552 Nausea R11.0 Type 2 diabetes mellitus E11.9
[2025-08-26] MEDS ORDERED: CARBOHYDRATES FOR HYPOGLYCEMIA PO PRN (18:46)
[2025-08-26] MEDS ORDERED: PHARMACY GLYCEMIC MGMT CONSULT PRN (18:46)
[2025-08-26] MEDS ORDERED: MELATONIN 3 MG TAB PO PRN (18:46)
[2025-08-26] MEDS ORDERED: ALUMINUM/MAGNESIUM SUSP 30 ML UDC PO PRN (18:46)
[2025-08-26] MEDS ORDERED: GLUCOSE 40% GEL 15 GM TUBE PO PRN (18:46)
[2025-08-26] MEDS ORDERED: ALBUTEROL HFA 8 GM INHALER INH PRN (18:46)
[2025-08-26] MEDS ORDERED: GLUCOSE 10 TAB/TUBE PO PRN (18:46)
[2025-08-26] MEDS ORDERED: POLYETHYLENE (MIRALAX) 17 GM PACK PO PRN (18:46)
[2025-08-26] MEDS ORDERED: DEXTROSE 50% 50 ML SYRINGE IV PRN (18:46)
[2025-08-26] MEDS ORDERED: GLUCAGON FOR INJ 1 MG VIAL SQ PRN (18:46)
[2025-08-26] MEDS: ONDANSETRON INJ 2 MG/ML 2 ML VIAL IV PRN (18:58)
[2025-08-26] MEDS: ACETAMINOPHEN 500 MG TAB PO SCH (18:58)
[2025-08-26] MEDS: SODIUM CHLORIDE 0.9% 1,000 ML IV SCH (19:03)
[2025-08-26] MEDS: INSULIN ASPART PER UNIT CHARGE SC SCH (20:24)
[2025-08-26] MEDS: LANTUS PER UNIT CHARGE SQ SCH (20:25)
[2025-08-26] MEDS ORDERED: Nursing to Pharmacy Communication SCH (20:30)
[2025-08-26] MEDS: LIDOCAINE 5% 1 PATCH TD SCH (20:34)
[2025-08-26] MEDS: HEPARIN SOD 5,000 UNIT/0.5 ML VIAL SQ SCH (20:35)
[2025-08-26] MEDS ORDERED: REMOVE LIDODERM PATCH SCH (23:30)
--- NOTE | 2025-08-27 01:39 | Magnetic Resonance Report ---
Exam(s): MRI L SPINE Without Contrast EXAM: MR Lumbar Spine Without Intravenous Contrast CLINICAL HISTORY: Reason for exam: Intractable left-sided LBP, radiates to left knee. TECHNIQUE: Magnetic resonance images of the lumbar spine without intravenous contrast in multiple planes. COMPARISON: Prior plain film images of the lumbar spine from August 26, 2025. FINDINGS: Vertebrae: There are 5 lumbar type vertebral bodies with a mild dextroscoliosis and shallow lumbar lordosis. There is a mild grade 1 anterolisthesis of L4 and L5 measuring 2 mm. Otherwise, there is normal vertebral body height and alignment. The bone marrow signal is heterogeneous with reactive endplate changes. No acute fracture. Mild to advanced facet joint arthropathy with mild to advanced synovitis, most significant at the right L4-5 facet joint with bone marrow edema and inflammation of the surrounding soft tissues. Positive [place] sign at L4-5. There is abnormal articulation of the right L5 transverse process with the sacrum forming a pseudoarthrosis. Spinal cord: The conus demonstrates a stretched morphology, terminating at L1-L2. Soft tissues: Advanced atrophy of the iliopsoas, paraspinous intraspinous musculature. The aorta and IVC flow voids are intact. Tiny bilateral renal cyst. DISCS/SPINAL CANAL/NEURAL FORAMINA: L1-L2: There is mild disc degeneration with annular disc bulge flattening the ventral thecal sac with disc extending to the right neural foramen without evidence of impingement or significant stenosis. L2-L3: Moderate disc degeneration with annular disc bulge causing a mild subarticular recess stenosis with disc extending to the neural foramina without evidence of impingement or significant stenosis. L3-L4: There is mild disc degeneration with annular disc bulge causing a mild subarticular recess stenosis with disc extending to the neural foramina without evidence of impingement or significant stenosis. L4-L5: There is mild disc degeneration with annular disc bulge asymmetric to the right causing a mild subarticular recess stenosis with disc extending to the neural foramina without evidence of impingement or significant stenosis. L5-S1: Advanced disc degeneration with annular disc bulge flattening the ventral thecal sac with disc and osteophyte extending to the neural foramina causing a mild right and moderate left stenosis with mild impingement of the left L5 nerve root ganglion. IMPRESSION: 1. Advanced disc degeneration at L5-S1: Moderate disc degeneration at L2- 3 and mild disc degeneration at L1-L2, L3-4 and L4-5 with annular disc bulging flattening the ventral thecal sac and causing a mild subarticular recess stenosis at L2-3, L3-4 and L4-5 without evidence of neural impingement. 2. There is no spinal canal stenosis. 3. There is a mild right and moderate left L5-S1 neural foraminal stenosis with impingement of the left L5 nerve root ganglion. 4. There is mild to advanced facet arthropathy with mild to advanced synovitis, most significant at the right L4-5 facet joint. 5. No evidence of fracture, infection, tumor or arachnoiditis. Electronically signed by: Kennedi Awan MD 08/27/25 01:38 AM
[2025-08-27] MEDS: INSULIN ASPART PER UNIT CHARGE SC SCH (02:12)
[2025-08-27] MEDS: HYDROmorphone INJ 1 MG/ML SYRINGE IV PRN (03:22)
[2025-08-27 07:09] LABS: Hematocrit (blood only) 33.2 % (37.0-47.0); Hemoglobin 11.0 g/dl (12.0-16.0); Immature Granulocytes # (auto) 0.02 K/uL (0.01-0.20); Immature Granulocytes % (auto) 0.4 %; Mean Corpuscular Hemoglobin 29.0 pg (25.0-34.0); Mean Corpuscular Volume 87.6 fL (80.0-100.0); Platelet Count 195 K/uL (130-400); RDW Standard Deviation 43.3 fL (36.4-46.3); Red Blood Count 3.79 M/uL (4.20-5.40); White Blood Count 4.50 K/ul (4.8-10.8)
[2025-08-27 07:57] LABS: Alanine Aminotransferase 23.0 U/L (7-52); Albumin Globulin Ratio 1.5 (0.9-2); Albumin Level 3.9 gm/dl (3.4-5.0); Alkaline Phosphatase 64.0 U/L (34-104); Anion Gap 7.0 (3-11); Bilirubin,Total 0.4 mg/dl (0.2-1.0); Blood Urea Nitrogen 26.0 mg/dl (6-23); Calcium 8.7 mg/dl (8.6-10.3); Carbon Dioxide 23.0 mmol/L (21-32); Chloride 105.0 mmol/L (98-107); Creatinine Clr Calc Pharmacy 44.8 ml/min; Globulin 2.6 gm/dl (2.5-4.0); Glucose 167.0 mg/dl (70-99(Fasting)); Potassium 3.9 mmol/L (3.5-5.1); Sodium 135.0 mmol/L (136-145); Total Protein 6.5 gm/dl (6.0-8.3)
[2025-08-27] MEDS: FLUTICASONE FUROATE 100MCG 14 PUFFS/INHALER INH SCH (08:19)
[2025-08-27] MEDS: CYANOCOBALAMIN (B-12) 2,500 MCG TABLET SL SCH (08:19)
[2025-08-27] MEDS: CHOLECALCIFEROL 25 MCG (1000 UNITS) TAB PO SCH (08:19)
[2025-08-27] MEDS: LOSARTAN POTASSIUM 50 MG TAB PO SCH (08:19)
[2025-08-27] MEDS: ASPIRIN 81 MG ECTAB PO SCH (08:19)
[2025-08-27] MEDS: ATORVASTATIN 40 MG TAB PO SCH (08:19)
[2025-08-27] MEDS: AZELASTINE HCL 0.1% NASAL 200 SPRAYS/27,400 MCG BTL NAE SCH (08:20)
[2025-08-27] MEDS: POTASSIUM CHLORIDE 10 MEQ TABCR PO SCH (08:21)
[2025-08-27] MEDS: HYDROmorphone INJ 0.5 MG/0.5 ML SYR IV PRN (08:27)
[2025-08-27] MEDS: REMOVE LIDODERM PATCH SCH (09:00)
--- NOTE | 2025-08-27 11:27 | Pharmacy Report ---
Pharmacy Glycemic Short Note 2 - Date of Service August 27, 2025 - Glycemic Short BSG Results (Last 24 hours): 08/26/25 08/26/25 08/26/25 11:49 19:03 20:14 Glucose 99 POC Glucose 189 H 160 H 08/27/25 08/27/25 08/27/25 02:04 06:32 08:28 Glucose 167 H POC Glucose 165 H 147 H OUTPATIENT ANTIDIABETIC REGIMEN: * metformin 500 mg daily, glimepiride 1 mg qAM and 2 mg qPM ASSESSMENT: * 75 year old admitted with back pain, started on IV steroids. Pharmacy consulted for glycemic management. Type 2 diabetic managed on oral agents outpatient. Received 31 units of insulin yesterday, of which 30 units were basal insulin last evening to cover steroids. Fasting BSG 147 mg/dL - will see how blood sugars trend, but will consider adding ongoing Lantus 10-15 units bid PLAN FOR INPATIENT GLYCEMIC CONTROL: * Hold outpatient oral diabetes medications * Basal insulin * Lantus 10-15 units SQ BID * Bolus insulin * NovoLog per scale ACHS or Q6hrs while NPO * Goal Range: Low 110 mg/dL - High 140 mg/dL * Correction Factor: 30 mg/dL/unit * Nutritional / Prandial insulin per carb ratio of 1 unit per 8 grams CHO consumed
--- NOTE | 2025-08-27 14:33 | Hospitalist Progress Note ---
"Date of Service August 27, 2025 Assessment & Plan (1) Lumbar radiculopathy, acute: (2) Intractable low back pain: (3) Nausea: (4) Type 2 diabetes mellitus: Plan Yolanda is a pleasant 75-year-old woman with past medical history of HTN, T2DM, HLD, CKD, GERD, mild intermittent asthma, allergic rhinitis, alopecia. She presented from home with intractable lower back pain and acute left-sided lumbar radiculopathy as well as nausea with vomiting and mild IGNACIO #Intractable low back pain | Left hip pain -MRI with herniated disc with left- sided moderate neuroforaminal stenosis causing L5 impingement. Pain ongoing but somewhat improved and she was able to ambulate with PT who recommends that she return home at the time of discharge. Still having some nausea with opioids and need to wean off IV opioids to oral. No need for surgery or pain management evaluation at this time for injection as this is fairly acute and could improve with conservative treatment -Scheduled Tylenol 1,000 mg Q8h, continue Dilaudid 0.5-1.0 mg Q4h PRN mod-severe pain, lidocaine patch daily - Add oxycodone 10 mg p.o. every 6 hours as needed pain and tried this before IV Dilaudid-she will need a new prescription for the 10 mg of oxycodone on discharge as 5 mg of Percocet did not help her at home previously - Continue Zofran as needed for nausea associated with opioids - Continue Solu-Medrol 60 mg IV BID and plan to send home with steroid taper - PT/OT consulted and recommends return home-recommend outpatient PT for patient she will need a prescription for this on discharge - If not improving over the next month or so, could consider referral to pain management for injection #Nausea | Elevated Creatinine - decreased PO intake in setting of severe pain. Had CT A/P at [facility] ED on 08/25 that was unremarkable. She tends to get nausea and vomiting with opioids and with pain - Baseline Cr ~1.1, Cr 1.33 on admission and now improved to baseline -Okay to discontinue IV fluids but continue to hold HCTZ -Continue antiemetics as needed and will need a prescription for oral Zofran on discharge #Hypertension -BPs are mildly elevated likely secondary to pain. Home regimen of HCTZ 12.5 mg daily, losartan 100 mg daily - Continue losartan - HOLD HCTZ with elevated Cr from baseline - Hydralazine IV as needed with parameters #T2DM - last A1c 7.2% in May 2025 - Hold home regimen - Will use Lantus + SSI while hospitalized - Pharmacy consulted for glycemic management in the setting of IV steroids #HLDcontinue atorvastatin #GERDcontinue PPI #Allergies | Asthmacontinue home inhaler as needed #Vitamin D deficiencycontinue cholecalciferol 25 mcg daily #Vitamin B12 deficiencycontinue cyanocobalamin 5000 mcg daily DVT prophylaxis-heparin Dispo: Continued stay but can downgrade to medical/surgical unit as she is weaned off oxygen and is in sinus bradycardia. Admission and Anticipated Discharge Date Admission Date: August 26, 2025 Subjective Patient reports still ongoing fairly severe pain requiring IV Dilaudid through the night and this morning. Nausea is improved but she did require Zofran when getting IV Dilaudid. No vomiting. Still with pain down the left lower extremity to the thigh and knee. Telemetry with sinus bradycardia with rates in the 40s to 50s She was weaned off oxygen to room air Physical Exam Constitutional: WD/WN, vitals as above Respiratory: normal respiratory effort, lungs clear to auscultation Cardiovascular: RRR, no murmur, no edema Gastrointestinal (Abdomen): normal bowel sounds, soft, nontender, no hepatosplenomegaly Results & Data Results & Data Vital Signs (Past 12 Hours) Vital Signs Temp Pulse Pulse Resp BP Pulse Ox O2 Del Method 08/27/25 14:19 56 L 08/27/25 11:09 Room Air 08/27/25 11:02 36.5 C 58 L 18 148/68 H 97 Room Air 08/27/25 07:07 36.9 C 56 L 18 159/72 H 99 Nasal Cannula O2 Flow Rate 08/27/25 14:19 08/27/25 11:09 08/27/25 11:02 08/27/25 07:07 1 Laboratory Results CBC, BMP, LFTs reviewed Diagnostic Findings MRI lumbar spine reviewed PG Care Time/CCT Total # of Minutes Spent Total Time Spent with Patient: Total time spent is greater than 50% in coordination of care (as documented) at patient's floor/unit and/or counseling patient: Coding Level of Care Code 74641 SUB INP/OBS CARE 2/35MIN Diagnoses Lumbar radiculopathy, acute M54.16 Intractable low back pain M54.59 Nausea R11.0 Type 2 diabetes mellitus E11.9"
[2025-08-27] MEDS: LIDOCAINE 5% 1 PATCH TD SCH (20:28)
[2025-08-27] MEDS: LANTUS PER UNIT CHARGE SQ SCH (20:42)
--- NOTE | 2025-08-28 20:00 | Hospitalist Progress Note ---
Date of Service August 28, 2025 Assessment & Plan (1) Lumbar radiculopathy, acute: (2) Intractable low back pain: (3) Nausea: (4) Type 2 diabetes mellitus: Plan 75 years old female with past medical history of FULL CODE @ home, obesity with BMI 32.0 (height 165.1 cm, weight 87.2 kg), HTN, T2DM, HLD, CKD, GERD, mild intermittent asthma, allergic rhinitis, alopecia, who presented to [facility] ER from her home on 08/26/2025 with intractable lower back pain and acute left-sided lumbar radiculopathy as well as nausea with vomiting and mild IGNACIO. The following medical issues are being addressed: #Intractable low back pain | Left hip pain -MRI with herniated disc with left- sided moderate neuroforaminal stenosis causing L5 impingement. Pain ongoing but somewhat improved and she was able to ambulate with PT who recommends that she return home at the time of discharge. Still having some nausea with opioids and need to wean off IV opioids to oral. No need for surgery or pain management evaluation at this time for injection as this is fairly acute and could improve with conservative treatment -Scheduled Tylenol 1,000 mg Q8h, continue Dilaudid 0.5-1.0 mg Q4h PRN mod-severe pain, lidocaine patch daily - Add oxycodone 10 mg p.o. every 6 hours as needed pain and tried this before IV Dilaudid-she will need a new prescription for the 10 mg of oxycodone on discharge as 5 mg of Percocet did not help her at home previously - Continue Zofran as needed for nausea associated with opioids - Continue Solu-Medrol 60 mg IV BID and plan to send home with steroid taper - PT/OT consulted and recommends return home-recommend outpatient PT for patient she will need a prescription for this on discharge - If not improving over the next month or so, could consider referral to pain management for injection #Nausea | Elevated Creatinine - decreased PO intake in setting of severe pain. Had CT A/P at [facility] ED on 08/25 that was unremarkable. She tends to get nausea and vomiting with opioids and with pain - Baseline Cr ~1.1, Cr 1.33 on admission and now improved to baseline -Okay to discontinue IV fluids but continue to hold HCTZ -Continue antiemetics as needed and will need a prescription for oral Zofran on discharge #Hypertension -BPs are mildly elevated likely secondary to pain. Home regimen of HCTZ 12.5 mg daily, losartan 100 mg daily - Continue losartan - HOLD HCTZ with elevated Cr from baseline - Hydralazine IV as needed with parameters #T2DM - last A1c 7.2% in May 2025 - Hold home regimen - Will use Lantus + SSI while hospitalized - Pharmacy consulted for glycemic management in the setting of IV steroids #HLDcontinue atorvastatin #GERDcontinue PPI #Allergies | Asthmacontinue home inhaler as needed #Vitamin D deficiencycontinue cholecalciferol 25 mcg daily #Vitamin B12 deficiencycontinue cyanocobalamin 5000 mcg daily DVT prophylaxis-heparin Dispo: Continued stay but can downgrade to medical/surgical unit as she is weaned off oxygen and is in sinus bradycardia. Admission and Anticipated Discharge Date Admission Date: August 26, 2025 Subjective "I can't take it anymore, doc. The pain in my back doesn't go away for at least one hour after I get the dilaudid 0.5mg - 1mg IV q4 prn shots. Then the pain comes back after about 1 hour. I want to get the back surgery and see if that will make my lower back pain go away. I know the risks of back surgery. The doctor told me that the surgery on my lower back could make things worse. I will take my chances." Review of Systems Constitutional: Positive for lower back pain with left-sided radiculopathy. Negative for antecedent/coincident fevers, chills, diaphoresis, cough, wheeze, sore throat, hemoptysis, chest pains, palpitations, pleurisy, nausea, vomiting, diarrhea, abdominal pain, pelvic pain, hematemesis, hematochezia, melena, hematuria, dysuria, frequency, urgency, headaches, dizziness, lightheadedness, visual changes, hearing changes, weakness, falls, syncope, trauma, travel history, sick contacts, or food/drug ingestions novel or new. All other review of systems are reported as negative by the patient on 08/28/2025. Physical Exam Constitutional: General: Uncomfortable with lumbago, yet cooperative, coherent. Wide awake and alert. Not confused, lethargic, or obtunded. Patient speaks in complete, fluent, and articulate sentences without pause, interruption, cough, or wheeze. HEENT: Normocephalic, atraumatic. Extra-ocular muscles intact. Pupils equally round and reactive to light. No nystagmus, gaze paresis, anisocoria, miosis, mydriasis, hyphema, chemosis, scleral injection, conjunctivitis, or pterygium. No otorrhea or rhinorrhea. No pharyngeal discharge or exudate. Neck: Supple, no stridor or bruit. Jugular venous pressure is estimated to be 3 cm above the sternal angle of Cornelio, which is, by definition, 5 cm above the level of the right atrium. Hence, jugular venous pressure of 8 cm is not elevated on 08/28/2025. Lymphatics: No anterior/posterior cervical, infraclavicular, supraclavicular, axillary, epitrochlear, or inguinal adenopathy. Chest: Symmetric rise and fall with respirations. Non-tender to palpation. Lungs: Clear to auscultation and percussion. No audible expiratory wheeze, egophony, pectoriloquy, increase in tactile fremitus, or flatness/dullness to percussion at the bases. Heart: Regular rate and rhythm. S1 and S2 noted. No S3 or S4 summation gallop. No tripartite friction rub. Grade II/ early systolic murmur at left lower sternal border without radiation to the carotids, axilla, or back, and which remains invariant in regards to the respiratory cycle. Abdomen: Soft, non-tender, non-distended. No rebound, guarding, Tobias's sign, or organomegaly. Bowel sounds auscultated in all 4 quadrants. Extremities: No clubbing, cyanosis, or edema. 2+ pedal pulses bilaterally. Skin: No decubitus ulcer, exanthem, or enanthem. Urology: No mccoy catheter. No purewick. No urethral discharge. Neurology: Alert and oriented in regards to person, place, time, and situation. DTR+. 5/5 motor strength in all 4 extremities, both proximally and distally. Straight leg raising positive on the left; negative on the right. Psychiatry: No flat affect. No monotone voice. Smiles appropriately. Results & Data Results & Data Vital Signs (Past 12 Hours) Vital Signs Temp Pulse Resp BP Pulse Ox O2 Del Method 08/28/25 14:58 36.7 C 54 L 16 171/80 H 97 Room Air Laboratory Results Abnormal lab results 08/27/25 08/28/25 08/28/25 Range/Units 20:23 07:33 16:30 POC Glucose 152 H 153 H 144 H (70-99) mg/dl 08/28/25 Range/Units 19:52 POC Glucose 164 H (70-99) mg/dl PG Care Time/CCT Total # of Minutes Spent Total Time Spent with Patient: Total time spent is greater than 50% in coordination of care (as documented) at patient's floor/unit and/or counseling patient: Coding Level of Care Code 86031 SUB INP/OBS CARE 2/35MIN Diagnoses Lumbar radiculopathy, acute M54.16 Intractable low back pain M54.59 Nausea R11.0 Type 2 diabetes mellitus E11.9
--- NOTE | 2025-08-29 07:08 | Electrocardiogram Report ---
Test Reason : Blood Pressure : */* mmHG Vent. Rate : 55 BPM Atrial Rate : 55 BPM P-R Int : 176 ms QRS Dur : 84 ms QT Int : 434 ms P-R-T Axes : 50 54 57 degrees QTcB Int : 415 ms Sinus bradycardia Otherwise normal ECG When compared with ECG of 16-Mar-2025 12:58, No significant change was found Confirmed by Olu Keyes ([id number]) on 08/29/2025 7:08:40 AM Referred By: REFERRED SELF Confirmed By: Olu Keyes
--- NOTE | 2025-08-29 19:26 | Hospitalist Progress Note ---
Date of Service August 29, 2025 Assessment & Plan (1) Lumbar radiculopathy, acute: (2) Intractable low back pain: (3) Nausea: (4) Type 2 diabetes mellitus: Plan 75 years old female with past medical history of FULL CODE @ home, obesity with BMI 32.0 (height 165.1 cm, weight 87.2 kg), HTN, T2DM, HLD, CKD, GERD, mild intermittent asthma, allergic rhinitis, alopecia, who presented to [facility] ER from her home on 08/26/2025 with intractable lower back pain and acute left-sided lumbar radiculopathy as well as nausea with vomiting and mild IGNACIO. The following medical issues are being addressed: #Intractable low back pain | Left hip pain -MRI with herniated disc with left- sided moderate neuroforaminal stenosis causing L5 impingement. Pain ongoing but somewhat improved and she was able to ambulate with PT who recommends that she return home at the time of discharge. Still having some nausea with opioids and need to wean off IV opioids to oral. No need for surgery or pain management evaluation at this time for injection as this is fairly acute and could improve with conservative treatment -Scheduled Tylenol 1,000 mg Q8h, continue Dilaudid 0.5-1.0 mg Q4h PRN mod-severe pain, lidocaine patch daily - Add oxycodone 10 mg p.o. every 6 hours as needed pain and tried this before IV Dilaudid-she will need a new prescription for the 10 mg of oxycodone on discharge as 5 mg of Percocet did not help her at home previously - Continue Zofran as needed for nausea associated with opioids - Continue Solu-Medrol 60 mg IV BID and plan to send home with steroid taper - PT/OT consulted and recommends return home-recommend outpatient PT for patient she will need a prescription for this on discharge - If not improving over the next month or so, could consider referral to pain management for injection #Nausea | Elevated Creatinine - decreased PO intake in setting of severe pain. Had CT A/P at [facility] ED on 08/25 that was unremarkable. She tends to get nausea and vomiting with opioids and with pain - Baseline Cr ~1.1, Cr 1.33 on admission and now improved to baseline -Okay to discontinue IV fluids but continue to hold HCTZ -Continue antiemetics as needed and will need a prescription for oral Zofran on discharge #Hypertension -BPs are mildly elevated likely secondary to pain. Home regimen of HCTZ 12.5 mg daily, losartan 100 mg daily - Continue losartan - HOLD HCTZ with elevated Cr from baseline - Hydralazine IV as needed with parameters #T2DM - last A1c 7.2% in May 2025 - Hold home regimen - Will use Lantus + SSI while hospitalized - Pharmacy consulted for glycemic management in the setting of IV steroids #HLDcontinue atorvastatin #GERDcontinue PPI #Allergies | Asthmacontinue home inhaler as needed #Vitamin D deficiencycontinue cholecalciferol 25 mcg daily #Vitamin B12 deficiencycontinue cyanocobalamin 5000 mcg daily DVT prophylaxis-heparin Dispo: Continued stay but can downgrade to medical/surgical unit as she is weaned off oxygen and is in sinus bradycardia. Admission and Anticipated Discharge Date Admission Date: August 26, 2025 Subjective "I'm doing better now; the pain in my back is a 1 (out of 10 pain intensity scale) now, after having received the oxycodone 10mg tablet (08/29/2025, 7:17am) and dilaudid 1mg IV shot (08/29/2025, 3:01am), and then walking around with some help from the nurses. Even so, I would like to speak to the spine surgeon to get their opinion on whether I should get the surgery done on my back, because I can't keep taking these pain meds, you know? I need a fix that will last a long time, not just taking pain meds to treat back pain." Review of Systems Constitutional: Positive for lower back pain with left-sided radiculopathy. Negative for antecedent/coincident fevers, chills, diaphoresis, cough, wheeze, sore throat, hemoptysis, chest pains, palpitations, pleurisy, nausea, vomiting, diarrhea, abdominal pain, pelvic pain, hematemesis, hematochezia, melena, hematuria, dysuria, frequency, urgency, headaches, dizziness, lightheadedness, visual changes, hearing changes, weakness, falls, syncope, trauma, travel his tory, sick contacts, or food/drug ingestions novel or new. All other review of systems are reported as negative by the patient on 08/29/2025. Physical Exam Constitutional: General: Comfortable "AFTER having received oxycodone 10mg tablet (08/29/2025, 7:17am) and dilaudid 1mg IV shot (08/29/2025, 3:01am), and then walking around with some help from the nurses." Cooperative, coherent. Wide awake and alert. Not confused, lethargic, or obtunded. Patient speaks in complete, fluent, and articulate sentences without pause, interruption, cough, or wheeze. HEENT: Normocephalic, atraumatic. Extra-ocular muscles intact. Pupils equally round and reactive to light. No nystagmus, gaze paresis, anisocoria, miosis, mydriasis, hyphema, chemosis, scleral injection, conjunctivitis, or pterygium. No otorrhea or rhinorrhea. No pharyngeal discharge or exudate. Neck: Supple, no stridor or bruit. Jugular venous pressure is estimated to be 3 cm above the sternal angle of Cornelio, which is, by definition, 5 cm above the level of the right atrium. Hence, jugular venous pressure of 8 cm is not elevat ed on 08/29/2025. Lymphatics: No anterior/posterior cervical, infraclavicular, supraclavicular, axillary, epitrochlear, or inguinal adenopathy. Chest: Symmetric rise and fall with respirations. Non-tender to palpation. Lungs: Clear to auscultation and percussion. No audible expiratory wheeze, egophony, pectoriloquy, increase in tactile fremitus, or flatness/dullness to percussion at the bases. Heart: Regular rate and rhythm. S1 and S2 noted. No S3 or S4 summation gallop. No tripartite friction rub. Grade II/ early systolic murmur at left lower sternal border without radiation to the carotids, axilla, or back, and which remains invariant in regards to the respiratory cycle. Abdomen: Soft, non-tender, non-distended. No rebound, guarding, Tobisa's sign, or organomegaly. Bowel sounds auscultated in all 4 quadrants. Extremities: No clubbing, cyanosis, or edema. 2+ pedal pulses bilaterally. Skin: No decubitus ulcer, exanthem, or enanthem. Urology: No mccoy catheter. No purewick. No urethral discharge. Neurology: Alert and oriented in regards to person, place, time, and situation. DTR+. 5/5 motor strength in all 4 extremities, both proximally and distally. Straight leg raising positive on the left; negative on the right. Non-tender to palpation of the lumbar region and para-lumbar spinal region. Psychiatry: No flat affect. No monotone voice. Smiles appropriately. Results & Data Results & Data Vital Signs (Past 12 Hours) Vital Signs Temp Pulse Resp BP Pulse Ox O2 Del Method 08/29/25 15:51 57 L 16 186/74 H 98 Room Air 08/29/25 07:17 36.6 C 49 L 18 185/73 H 97 Room Air Laboratory Results BUN 31, creatinine 1.33 (08/26/2025, 11:49am). BUN 26, creatinine 1.10 (08/27/2025, 6:32am). Hb 12.6 g/dL, MCV 88.0, MCHC 32.6 (08/26/2025, 11:49am). Hb 11.0 g/dL, MCV 87.6, MCHC 33.1 (08/27/2025, 6:32am). Diagnostic Findings MRI lumbar spine with IV contrast (08/26/2025, 6:46pm): 1. Advanced disc degeneration at L5-S1: Moderate disc degeneration at L2-3 and mild disc degeneration at L1-L2, L3-4 and L4-5 with annular disc bulging flattening the ventral thecal sac and causing a mild subarticular recess stenosis at L2-3, L3-4 and L4-5 without evidence of neural impingement. 2. There is no spinal canal stenosis. 3. There is a mild right and moderate left L5-S1 neural foraminal stenosis with impingement of the left L5 nerve root ganglion. 4. There is mild to advanced facet arthropathy with mild to advanced synovitis, most significant at the right L4-5 facet joint. 5. No evidence of fracture, infection, tumor or arachnoiditis. PG Care Time/CCT Total # of Minutes Spent Total Time Spent with Patient: Total time spent is greater than 50% in coordination of care (as documented) at patient's floor/unit and/or counseling patient: Coding Level of Care Code 06266 SUB INP/OBS CARE 2/35MIN Diagnoses Lumbar radiculopathy, acute M54.16 Intractable low back pain M54.59 Nausea R11.0 Type 2 diabetes mellitus E11.9
[2025-08-29 19:58] LABS: Hematocrit (blood only) 37.4 % (37.0-47.0); Hemoglobin 12.2 g/dl (12.0-16.0); Mean Corpuscular Hemoglobin 28.6 pg (25.0-34.0); Mean Corpuscular Volume 87.6 fL (80.0-100.0); Platelet Count 230 K/uL (130-400); RDW Standard Deviation 42.5 fL (36.4-46.3); Red Blood Count 4.27 M/uL (4.20-5.40); White Blood Count 7.79 K/ul (4.8-10.8)
[2025-08-29 20:21] LABS: Anion Gap 8.0 (3-11); Blood Urea Nitrogen 37.0 mg/dl (6-23); Calcium 9.5 mg/dl (8.6-10.3); Carbon Dioxide 23.0 mmol/L (21-32); Chloride 105.0 mmol/L (98-107); Creatinine Clr Calc Pharmacy 28.2 ml/min; Glucose 130.0 mg/dl (70-99(Fasting)); Potassium 4.2 mmol/L (3.5-5.1); Sodium 136.0 mmol/L (136-145)
[2025-08-29 23:01] LABS: Appearance Urine Clear (Clear); Bacteria Urine Automated None Seen (None Seen); Cast Urine Automated 0-2 /lpf (0-2); Epithelial Cell Urine Auto 0-2 /hpf (0-2); Glucose Urine UA Negative (Negative); RBC Urine Automated 0-2 /hpf (0-2); WBC Urine Automated 0-5 /hpf (0-5)
[2025-08-30 07:39] LABS: Hematocrit (blood only) 35.6 % (37.0-47.0); Hemoglobin 11.7 g/dl (12.0-16.0); Mean Corpuscular Hemoglobin 29.2 pg (25.0-34.0); Mean Corpuscular Volume 88.8 fL (80.0-100.0); Platelet Count 209 K/uL (130-400); RDW Standard Deviation 43.8 fL (36.4-46.3); Red Blood Count 4.01 M/uL (4.20-5.40); White Blood Count 5.24 K/ul (4.8-10.8)
[2025-08-30 07:43] VITALS: BP 191/77; PULSE 47; RESP 16; TEMP 97.7; O2SAT 100
[2025-08-30 08:05] LABS: Anion Gap 5.0 (3-11); Blood Urea Nitrogen 37.0 mg/dl (6-23); Calcium 9.3 mg/dl (8.6-10.3); Carbon Dioxide 28.0 mmol/L (21-32); Chloride 104.0 mmol/L (98-107); Creatinine Clr Calc Pharmacy 35.8 ml/min; Glucose 180.0 mg/dl (70-99(Fasting)); Potassium 4.0 mmol/L (3.5-5.1); Sodium 137.0 mmol/L (136-145)
--- NOTE | 2025-08-30 10:08 | XRay Report ---
XR lumbar spine flex/ext only CLINICAL HISTORY: standing films, back pain COMPARISON STUDY: 08/26/2025 FINDINGS: There is moderate diffuse degenerative disc disease and lower lumbar facet degeneration. Th ere is grade 1 anterolisthesis of L4 on 5. No fracture seen. No abnormal translation seen. IMPRESSION: No abnormal translation seen. ACT 112: Negative or not required by law. Electronically signed by: Tayo Chandra M.D. 08/30/2025 10:07 AM
--- NOTE | 2025-08-30 11:59 | Consultation ---
Date of Consultation August 30, 2025 Assessment & Plan (1) Intractable low back pain: Patient has also been interviewed by Dr. Keen. Treatment plan has been discussed with Dr. Keen. She has a grade 1 spondylolisthesis at L4-5 but her pain is improving. She is orthopedically stable for discharge. My recommendation is that she follow-up on an outpatient basis with Dr. Curiel (pain management) for discussion of outpatient epidural injection at the L4-5 level. She is comfortable with this plan. We can see her in the office a few weeks after her injection. (2) Lumbar radiculopathy, acute: History of Present Illness Attending Physician: Kain Burden MD, PhD History of Present Illness Yolanda is a pleasant 75-year-old female who states 9 days ago she began with an acute onset of lower back pain that radiates down the left lower extremity. She went to her family physician 2 days after onset of pain. They offered her a greater trochanter injection into the hip but she declined. Pain persisted so she went to the [facility] where they gave her pain medicine and discharged her. She then the next day went to [facility] and she has been admitted to since. Upon examination today her pain is greatly improved. Upon admission involve the lower back region on the left lower extremity and including the anterior and lateral thigh, knee and stacy. Right leg is asymptomatic. She typically ambulates independently. 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 She has been quite sensitive to narcotics with severe nausea. Allergies Allergy/AdvReac Type Severity Reaction Status Date / Time pneumococcal vaccine Allergy Intermediate ARM Verified 08/23/25 15:42 SWELLING AT INSERTION erythromycin base Allergy Unknown "DOESN'T Verified 08/23/25 15:42 REMEMBER" lisinopril Allergy Unknown "DOESN'T Verified 08/23/25 15:42 REMEMBER" propoxyphene Allergy Unknown "UNSURE" Verified 08/23/25 15:42 telithromycin Allergy Unknown "UNSURE" Verified 08/23/25 15:42 benzonatate AdvReac Intermediate SWEATING/SICK/HEART Verified 08/23/25 15:42 RACES Home Medications Medication Instructions Recorded Confirmed Type blood-glucose meter ([employer] #1 ea 03/03/20 08/23/25 Rx Ultra2 Meter kit) blood sugar diagnostic #100 ea 07/17/21 08/23/25 Rx lancets 33 gauge (OneTouch Delica #100 ea 07/17/21 08/23/25 Rx Lancets) lysine 1,000 mg tablet 1,000 mg PO DAILY #90 tabs 08/18/21 08/26/25 Rx albuterol sulfate 90 mcg/actuation 2 puff inhalation Q4H PRN 02/01/22 08/26/25 Rx aerosol inhaler shortness of breath or wheezing #25.5 grams losartan 100 mg tablet 100 mg PO DAILY #90 tabs 02/17/24 08/26/25 Rx atorvastatin 40 mg tablet 40 mg PO DAILY #90 tabs 02/24/24 08/26/25 Rx cholecalciferol (vitamin D3) 25 25 mcg PO DAILY 08/17/24 08/26/25 History mcg (1,000 unit) capsule celecoxib 200 mg capsule (Celebrex) 200 mg PO PRN #90 caps 08/24/24 08/26/25 Rx aspirin 81 mg tablet,delayed 81 mg PO 3XWK 02/17/25 08/26/25 History release (Adult Aspirin Regimen) cyanocobalamin (vitamin B-12) 5,000 mcg sublingual DAILY 03/16/25 08/26/25 History 5,000 mcg/mL sublingual drops (Vitamin B-12) esomeprazole magnesium 40 mg 40 mg PO DAILY #90 caps 03/29/25 08/26/25 Rx capsule,delayed release hydrochlorothiazide 25 mg tablet 12.5 mg (1/2 x 25 mg) PO DAILY #45 05/19/25 08/26/25 Rx tabs metformin 500 mg tablet,extended 500 mg PO DAILY #90 tabs 08/04/25 08/26/25 Rx release 24 hr potassium chloride 10 mEq 10 meq PO DAILY #90 tabs 08/04/25 08/26/25 Rx tablet,extended release azelastine 137 mcg (0.1 %) nasal See Rx Instructions .Route 08/12/25 08/26/25 Rx spray .COMPLEX #30 mL glimepiride 1 mg tablet 1 mg PO .COMPLEX #270 tabs 08/12/25 08/26/25 Rx fluticasone propionate 110 2 puff inhalation QAM 08/26/25 08/26/25 History mcg/actuation HFA aerosol inhaler lidocaine 4 % topical patch 1 patch topical DAILY PRN pain #30 08/26/25 08/26/25 Rx ea prednisone 10 mg tablet 20 mg (2 x 10 mg) PO DAILY 7 days 08/26/25 08/26/25 Rx #14 tabs ondansetron 8 mg disintegrating 8 mg PO Q8H PRN nausea and 08/30/25 Rx tablet vomiting #30 tabs oxycodone 5 mg tablet 10 mg (2 x 5 mg) PO Q4H PRN 08/30/25 Rx intractable back pain #84 tabs Patient History Medical History Chronic ulcer of right great toe Ovarian fibroma Surgical History Trigger finger Hx of bilateral salpingo-oophorectomy History of robot-assisted laparoscopic hysterectomy Status post repair of nerve ulnar nerve neuroplasty History of tonsillectomy H/O shoulder replacement H/O oral surgery History of carpal tunnel release Family History Other Brain cancer Breast cancer Cervical cancer Colorectal cancer Diabetes Endometriosis Heart disease Hepatic disorder Hyperlipidemia Hypertension Oral cancer Ovarian cancer Rectal cancer Uterine cancer Social History Smoking Status: Never smoker Second Hand Exposure: No; Do You Dip or Chew Tobacco: No; Hx Alcohol Use: No Hx Substance Use: No Preferred Language: Italian Communication Ability: Effective Visual Impairment: No Limitations Hearing Ability: Normal Weight Calculator Required: No Beliefs That Will Affect Care: None marital status: Current Living Situation: Spouse Current Living Situation Comment: PT LIVES WITH . 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 She is also been evaluated by Dr. Keen. Alert and oriented x 3 Cooperative with exam No acute distress Negative logrolling bilaterally Negative tension signs bilaterally She is nontender to palpation over the greater trochanter regions bilaterally motor testing is 5/5 bilateral EHL, dorsiflexion, plantarflexion, quadriceps, hamstrings, hip flexors, hip abductor's and hip adductor's Results & Data Vital Signs (Past 12 Hours) Vital Signs Temp Pulse Resp BP Pulse Ox O2 Del Method 08/30/25 07:11 36.5 C 47 L 16 191/77 H 100 Room Air Diagnostic Findings [place], [place] [phone] Magnetic Resonance Report Patient: YOLANDA WAGNER Admit Date: 08/26/25 MR#: [id number] Address1: [address] [place] [address] Acct ID:[id number] Address2: Date: 1950 [facility] Zip: [place] [address] Age: 75 Location: 2N Sex: F [facility]Bed[facility] Att Phy: Ilene Faulkner MD Diagnosis: INTRACTABLE BACK PAIN Regi Phy: Hernesto Mayers MD Service Date: 08/26/25 Fam Phy: Interpreting Phy: Kennedi Awan MDAdmit Phy: Ilene Faulkner MD Ordering Phy: Camille Dobbins PA-C cc: ~ Exam(s): MRI L SPINE Without Contrast EXAM: MR Lumbar Spine Without Intravenous Contrast CLINICAL HISTORY: Reason for exam: Intractable left-sided LBP, radiates to left knee. TECHNIQUE: Magnetic resonance images of the lumbar spine without intravenous contrast in multiple planes. COMPARISON: Prior plain film images of the lumbar spine from August 26, 2025. FINDINGS: Vertebrae: There are 5 lumbar type vertebral bodies with a mild dextroscoliosis and shallow lumbar lordosis. There is a mild grade 1 anterolisthesis of L4 and L5 measuring 2 mm. Otherwise, there is normal vertebral body height and alignment. The bone marrow signal is heterogeneous with reactive endplate changes. No acute fracture. Mild to advanced facet joint arthropathy with mild to advanced synovitis, most significant at the right L4-5 facet joint with bone marrow edema and inflammation of the surrounding soft tissues. Positive [place] sign at L4-5. There is abnormal articulation of the right L5 transverse process with the sacrum forming a pseudoarthrosis. Spinal cord: The conus demonstrates a stretched morphology, terminating at L1-L2. Soft tissues: Advanced atrophy of the iliopsoas, paraspinous intraspinous musculature. The aorta and IVC flow voids are intact. Tiny bilateral renal cyst. DISCS/SPINAL CANAL/NEURAL FORAMINA: L1-L2: There is mild disc degeneration with annular disc bulge flattening the ventral thecal sac with disc extending to the right neural foramen without evidence of impingement or significant stenosis. L2-L3: Moderate disc degeneration with annular disc bulge causing a mild subarticular recess stenosis with disc extending to the neural foramina without evidence of impingement or significant stenosis. L3-L4: There is mild disc degeneration with annular disc bulge causing a mild subarticular recess stenosis with disc extending to the neural foramina without evidence of impingement or significant stenosis. L4-L5: There is mild disc degeneration with annular disc bulge asymmetric to the right causing a mild subarticular recess stenosis with disc extending to the neural foramina without evidence of impingement or significant stenosis. L5-S1: Advanced disc degeneration with annular disc bulge flattening the ventral thecal sac with disc and osteophyte extending to the neural foramina causing a mild right and moderate left stenosis with mild impingement of the left L5 nerve root ganglion. IMPRESSION: 1. Advanced disc degeneration at L5-S1: Moderate disc degeneration at L2- 3 and mild disc degeneration at L1-L2, L3-4 and L4-5 with annular disc bulging flattening the ventral thecal sac and causing a mild subarticular recess stenosis at L2-3, L3-4 and L4-5 without evidence of neural impingement. 2. There is no spinal canal stenosis. 3. There is a mild right and moderate left L5-S1 neural foraminal stenosis with impingement of the left L5 nerve root ganglion. 4. There is mild to advanced facet arthropathy with mild to advanced synovitis, most significant at the right L4-5 facet joint. 5. No evidence of fracture, infection, tumor or arachnoiditis. Electronically signed by: Kennedi Awan MD 08/27/25 01:38 AM Dictated: 08/27/25137 Transcribed: 08/27/25137 [facility], [place] [phone] XRay Report Patient: YOLANDA WAGNER Admit Date: 08/26/25 MR#: [id number] Address1: [address] [place] [address] Acct ID:[id number] Address2: Date: 1950 [facility] Zip: [place] [address] Age: 75 Location: 3W Sex: F Room/Bed: [facility] Att Phy: Kain Burden MD., PhD Diagnosis: INTRACTABLE BACK PAIN Regi Phy: Hernesto Mayers MD Service Date: 08/30/25 Fam Phy: Interpreting Phy: Tayo Chandra [facility] Phy: Ilene Faulkner MD Ordering Phy: Quoc Keen D.O. cc: ~ XR lumbar spine flex/ext only CLINICAL HISTORY: standing films, back pain COMPARISON STUDY: 08/26/2025 FINDINGS: There is moderate diffuse degenerative disc disease and lower lumbar facet degeneration. There is grade 1 anterolisthesis of L4 on 5. No fracture seen. No abnormal translation seen. IMPRESSION: No abnormal translation seen. ACT 112: Negative or not required by law. Electronically signed by: Tayo Chandra M.D. 08/30/2025 10:07 AM Dictated: 08/30/25 1006 Transcribed: 08/30/25 1006
--- NOTE | 2025-08-30 12:30 | Pharmacy Report ---
Pharmacy Glycemic Short Note 2 - Date of Service August 30, 2025 - Glycemic Short BSG Results (Last 24 hours): 08/29/25 08/29/25 08/29/25 16:25 19:40 20:44 Glucose 130 H POC Glucose 156 H 71 08/30/25 08/30/25 08/30/25 07:12 07:32 11:46 Glucose 180 H POC Glucose 151 H 127 H OUTPATIENT ANTIDIABETIC REGIMEN: * metformin 500 mg daily, glimepiride 1 mg qAM and 2 mg qPM ASSESSMENT: 08/30: * Yolanda received a total of 33 units of insulin yesterday (15 units were basal and 18 units were bolus). BSGs were [phone]/dL. * Fasting BSG was 151mg/dL this morning. Will continue Lantus scale BID since he continues on methylprednisolone 60mg iv BID. * Loosened CR to help prevent additional hypoglycemia. 08/27: * 75 year old admitted with back pain, started on IV steroids. Pharmacy consulted for glycemic management. Type 2 diabetic managed on oral agents outpatient. Received 31 units of insulin yesterday, of which 30 units were basal insulin last evening to cover steroids. Fasting BSG 147 mg/dL - will see how blood sugars trend, but will consider adding ongoing Lantus 10-15 units bid PLAN FOR INPATIENT GLYCEMIC CONTROL: * Hold outpatient oral diabetes medications * Basal insulin * Lantus (0, 10, or 15 units depending on BSG) SQ BID * Bolus insulin * NovoLog per scale ACHS or Q6hrs while NPO * Goal Range: Low 110 mg/dL - High 140 mg/dL * Correction Factor: 30 mg/dL/unit * Nutritional / Prandial insulin per carb ratio of 1 unit per 10 grams CHO consumed
--- NOTE | 2025-08-30 16:09 | Discharge Summary ---
Discharge Summary Date of Service August 30, 2025 Principal Dx & Hospital Course #1 = Principal Diagnosis (1) Lumbar radiculopathy, acute: (2) Intractable low back pain: (3) Nausea: (4) Type 2 diabetes mellitus: Plan 75 years old female with past medical history of FULL CODE @ home, obesity with BMI 32.0 (height 165.1 cm, weight 87.2 kg), HTN, T2DM, HLD, CKD, GERD, mild intermittent asthma, allergic rhinitis, alopecia, who presented to [facility] ER from her home on 08/26/2025 with intractable lower back pain and acute left-sided lumbar radiculopathy as well as nausea with vomiting and mild IGNACIO. The following medical issues are being addressed: #Intractable low back pain | Left hip pain - cf., MRI lumbar spine with IV contrast (08/26/2025, 6:46pm): 1. Advanced disc degeneration at L5-S1: Moderate disc degeneration at L2-3 and mild disc degeneration at L1-L2, L3-4 and L4-5 with annular disc bulging flattening the ventral thecal sac and causing a mild subarticular recess stenosis at L2-3, L3-4 and L4-5 without evidence of neural impingement. 2. There is no spinal canal stenosis. 3. There is a mild right and moderate left L5-S1 neural foraminal stenosis with impingement of the left L5 nerve root ganglion. 4. There is mild to advanced facet arthropathy with mild to advanced synovitis, most significant at the right L4-5 facet joint. 5. No evidence of fracture, infection, tumor or arachnoiditis. Pain ongoing but somewhat improved and patient was able to ambulate with PT on 08/29/2025 and again on 08/30/[address] of [facility]. Physical Therapy Service subsequently recommended that she return home at the time of discharge. Orthopedic Spine Surgery Service of Dr. Quoc Keen also evaluated patient on 08/30/2025, and recommended outpatient Pain Management Service consultation and outpatient Orthopedic Spine Surgery Service followup within 5-7 days of hospital discharge, as no orthopedic spine surgical intervention is warranted on hospital discharge date 08/30/2025. - Patient received scheduled Tylenol 1,000 mg Q8h, Dilaudid 0.5-1.0 mg Q4h PRN mod-severe pain, lidocaine patch daily, and oxycodone 10 mg p.o. every 6 hours as needed pain and tried this before IV Dilaudid-she will need a new prescription for the 10 mg of oxycodone on discharge as 5 mg of Percocet did not help her at home previously - Patient was subsequently discharged back to her home on 08/30/2025 with an electronic prescription for oxycodone 10mg PO q4 prn pain 4-10, 5mg tablet, #84 tablets (7 day supply), no refills, transmitted to her [id number], [address] [place] [address], on 08/30/2025, prior to hospital discharge back to her home on 08/30/2025. #Nausea | Elevated Creatinine - decreased PO intake in setting of severe pain. Had CT A/P at [facility] ED on 08/25 that was unremarkable. She tends to get nausea and vomiting with opioids and with pain cf., BUN 31, creatinine 1.33 (08/26/2025, 11:49am). cf., BUN 26, creatinine 1.10 (08/27/2025, 6:32am). cf., BUN 37, creatinine 1.80 (08/29/2025, 7:40pm). cf., BUN 37, creatinine 1.42 (08/30/2025, 7:12am). cf., baseline creatinine range, 1.13 - 1.18 (05/08/2024 - 03/16/2025). -Patient was held off her home-scheduled HCTZ 12.5mg PO daily, to avoid further renal embarrassment, while continuing her home-scheduled losartan 100mg PO daily while in [facility] from admission 08/26/2025 through discharge date 08/30/2025. -Patient was subsequently discharged back to her home on 08/30/2025 with recommendations to re-start HCTZ 12.5mg PO daily and to continue home-scheduled losartan 100mg PO daily, as the amplitude of creatinine level elevation remains mild, in comparison to her baseline creatinine range, 1.13-1.18 (05/08/2024 - 03/16/2025). -Patient was also advised to follow up with her PCP Dr. Hernesto Mayers within 5-7 days of hospital discharge to undergo repeat creatinine level testing after re- starting HCTZ 12.5mg PO daily and continuing her home-scheduled losartan 100mg PO daily. Patient reports that she will comply with this recommendation. #Hypertension -cf., admission BP 201/128 (08/26/2025, 11:29am), 172/86 (08/26/2025, 1:15pm) on home-scheduled HCTZ 12.5 mg daily and home-scheduled losartan 100 mg daily. -Patient was subsequently held off her home-scheduled HCTZ 12.5mg PO daily, to avoid further renal embarrassment, while continuing her home-scheduled losartan 100mg PO daily while in [facility] from admission 08/26/2025 through discharge date 08/30/2025. -Patient's BP subsequently remained elevated with BP 185/73 (08/29/2025, 7:17am) and repeat/discharge BP 191/77 (08/30/2025, 7:11am). -Patient was subsequently discharged back to her home on 08/30/2025 with recommendations to re-start HCTZ 12.5mg PO daily and to continue home-scheduled losartan 100mg PO daily, as the amplitude of creatinine level elevation remains mild, in comparison to her baseline creatinine range, 1.13-1.18 (05/08/2024 - 03/16/2025). -Patient was also advised to follow up with her PCP Dr. Hernesto Mayers within 5-7 days of hospital discharge to undergo repeat BP level testing to see if patient's BP is better controlled after re-starting HCTZ 12.5mg PO daily and continuing her home-scheduled losartan 100mg PO daily. Patient reports that she will comply with this recommendation. #T2DM - last A1c 7.2% in May 2025 - Hold home regimen - Will use Lantus + SSI while hospitalized - Pharmacy consulted for glycemic management in the setting of IV steroids #HLDcontinue atorvastatin #GERDcontinue PPI #Allergies | Asthmacontinue home inhaler as needed #Vitamin D deficiencycontinue cholecalciferol 25 mcg daily #Vitamin B12 deficiencycontinue cyanocobalamin 5000 mcg daily DVT prophylaxis-heparin Dispo: Continued stay but can downgrade to medical/surgical unit as she is weaned off oxygen and is in sinus bradycardia. Admission HPI Per Admitting Provider Yolanda is a pleasant 75-year-old woman with past medical history of HTN, T2DM, HLD, CKD, GERD, mild intermittent asthma, allergic rhinitis, alopecia. She presented from home with intractable lower back pain. She states this pain began Monday 08/20 - denies any recent falls, trauma, or inciting event. She describes this as a constant, achy pain that extends from her left lower back into her left hip/groin and radiates across her anterior thigh down to her left knee. This is worse in the evening, but is not correlated to positioning. She saw her PCP for this pain on Thursday 08/23 and had an IM Toradol injection into her left hip and was given a course of Celebrex; this had no effect. She then presented to the [place] ER yesterday 08/[address] A/P without any acute abnormalities and x-rays of her hip that noted bilateral arthritis but no acute fractures. She was given a dose of IV fentanyl which significantly relieved her pain and she did not have any associated nausea from this. She was given a prescription of Percocet and oral steroids and discharged from their ED. Unfortunately, today she had significant difficulty ambulating secondary to pain and called her PCP who referred her back to the ED. Upon presentation to the ED, she was writhing in pain and her systolic BP was 200. She has been given multiple doses of IV narcotics and her pressure has improved. At the time of my exam, the patient was lying in bed in no acute distress. She is had intermittent nausea with dry heaving since this pain began. She reports she always becomes nauseous when she has significant pain. She has not had any vomiting. She began dry heaving during my evaluation, which she attributes to the IV morphine she received. Vitals on admission significant for hypertension with BP 172/86 and bradycardia with HR 50s; vitals otherwise stable. Labs on admission are significant for mildly elevated BUN and creatinine at 31 and 1.33 respectively. CBC with differential unremarkable. Electrolytes WNL. Liver function WNL. Lipase normal. UA negative. Lumbar x-ray on admission reveals diffuse degenerative disc disease and facet degeneration most advanced at L4-5 and L5-S1 but no fracture seen. We discussed code status, patient wishes to be a full code. Discharge Exam Constitutional General: Comfortable "AFTER having received oxycodone 10mg tablet (08/29/2025, 7:17am) and dilaudid 1mg IV shot (08/29/2025, 3:01am), and then walking around with some help from the nurses." Cooperative, coherent. Wide awake and alert. Not confused, lethargic, or obtunded. Patient speaks in complete, fluent, and articulate sentences without pause, interruption, cough, or wheeze. HEENT: Normocephalic, atraumatic. Extra-ocular muscles intact. Pupils equally round and reactive to light. No nystagmus, gaze paresis, anisocoria, miosis, mydriasis, hyphema, chemosis, scleral injection, conjunctivitis, or pterygium. No otorrhea or rhinorrhea. No pharyngeal discharge or exudate. Neck: Supple, no stridor or bruit. Jugular venous pressure is estimated to be 3 cm above the sternal angle of Cornelio, which is, by definition, 5 cm above the level of the right atrium. Hence, jugular venous pressure of 8 cm is not elevated on discharge date 08/30/2025. Lymphatics: No anterior/posterior cervical, infraclavicular, supraclavicular, axillary, epitrochlear, or inguinal adenopathy. Chest: Symmetric rise and fall with respirations. Non-tender to palpation. Lungs: Clear to auscultation and percussion. No audible expiratory wheeze, egophony, pectoriloquy, increase in tactile fremitus, or flatness/dullness to percussion at the bases. Heart: Regular rate and rhythm. S1 and S2 noted. No S3 or S4 summation gallop . No tripartite friction rub. Grade II/ early systolic murmur at left lower sternal border without radiation to the carotids, axilla, or back, and which remains invariant in regards to the respiratory cycle. Abdomen: Soft, non-tender, non-distended. No rebound, guarding, Tobias's sign, or organomegaly. Bowel sounds auscultated in all 4 quadrants. Extremities: No clubbing, cyanosis, or edema. 2+ pedal pulses bilaterally. Skin: No decubitus ulcer, exanthem, or enanthem. Urology: No mccoy catheter. No purewick. No urethral discharge. Neurology: Alert and oriented in regards to person, place, time, and situation. DTR+. 5/5 motor strength in all 4 extremities, both proximally and distally. Straight leg raising negative on the left; negative on the right on discharge date 08/30/2025. Non-tender to palpation of the lumbar region and para-lumbar spinal region on discharge date 08/30/2025. Psychiatry: No flat affect. No monotone voice. Smiles appropriately. Discharge Plan Discharge Items Patient Disposition: Home - Self-Care Reason For Visit: INTRACTABLE BACK PAIN Discharge Diagnosis: Intractable lumbago Condition on Discharge: Fair Activity: Resume your previous activity Lifting: Gradually increase as tolerated Bathing: No limitations Exercise/Sports: Gradually increase as tolerated Driving/Machine Use: No limitations Weightbearing: Full weightbearing Non-emergency contact: Primary Care Provider Call non-emergency contact if: you have any medication questions Follow-up/Referrals: Hernesto Mayers MD [Primary Care Provider] - 09/02/25 1:30 pm Diet: Heart Healthy Addtl Attending Provider Instructions: See your PCP Dr. Hernesto Mayers within 5-7 days of hospital discharge for (a) routine follow up visit, (b) to check repeat creatinine levels now that you are re-starting your home-scheduled HCTZ 12.5mg PO daily and continuing your home- scheduled losartan 100mg PO daily on hospital discharge home on 08/30/2025, and (c) to arrange for outpatient Pain Management Service Clinic evaluation to mitigate lower back pain. Pending Studies at Discharge: No Studies:: See your PCP Dr. Hernesto Mayers within 5-7 days of hospital discharge: (b) to check repeat creatinine levels now that you are re-starting your home- scheduled HCTZ 12.5mg PO daily and continuing your home-scheduled losartan 100mg PO daily on hospital discharge home on 08/30/2025. Stand-Alone Forms: My Pocketbook, Smoking Cessation Medications and DC Order Prescriptions: New oxycodone 5 mg Tablet 10 mg PO Q4H PRN (Reason: intractable back pain) Qty: 84 0RF Continued (DME) blood-glucose meter [OneTouch Ultra2 Meter] Kit See Rx Instructions .ROUTE .MEDSUPPLY Qty: 1 0RF Rx Instructions: Check blood sugar once daily dx :E11.40 (DME) blood sugar diagnostic Strip See Rx Instructions .ROUTE .MEDSUPPLY Qty: 100 3RF Rx Instructions: check blood sugar once daily dx E11.40 (DME) lancets [OneTouch Delica Lancets] 33 gauge misc See Rx Instructions .ROUTE .MEDSUPPLY Qty: 100 5RF Rx Instructions: Check BS once daily Dx E11.9 lysine 1,000 mg tablet 1,000 mg PO DAILY Qty: 90 3RF losartan 100 mg tablet 100 mg PO DAILY Qty: 90 3RF atorvastatin 40 mg tablet 40 mg PO DAILY Qty: 90 3RF celecoxib [Celebrex] 200 mg capsule 200 mg PO PRN Qty: 90 3RF esomeprazole magnesium 40 mg capsule,delayed release(DR/EC) 40 mg PO DAILY Qty: 90 3RF potassium chloride 10 mEq tablet extended release 10 meq PO DAILY Qty: 90 3RF Rx Instructions: FILL COATED POTASSIUM TABLETS easier to swallow metformin 500 mg tablet extended release 24 hr 500 mg PO DAILY Qty: 90 3RF glimepiride 1 mg tablet 1 mg PO .COMPLEX Qty: 270 3RF Rx Instructions: TAKES 1 MG QAM, THEN 2 MG QPM. lidocaine 4 % adhesive patch,medicated 1 patch topical DAILY PRN (Reason: pain) Qty: 30 0RF Rx Instructions: [facility] ER /24/25 ondansetron 4 mg tablet,disintegrating 4 mg PO Q8H PRN (Reason: nausea and vomiting) Qty: 10 0RF Rx Instructions: [facility] ER 24/25 prednisone 10 mg tablet 20 mg PO DAILY 7 Days Qty: 14 0RF Rx Instructions: [facility] ER 08/25/25 albuterol sulfate 90 mcg/actuation HFA aerosol inhaler 2 puff inhalation Q4H PRN (Reason: shortness of breath or wheezing) Qty: 25.5 3RF aspirin [Adult Aspirin Regimen] 81 mg tablet,delayed release (DR/EC) 81 mg PO 3XWK Rx Instructions: TAKES MON, WED, & FRI. cholecalciferol (vitamin D3) 25 mcg (1,000 unit) capsule 25 mcg PO DAILY hydrochlorothiazide 25 mg tablet 12.5 mg PO DAILY Qty: 45 3RF azelastine 137 mcg (0.1 %) spray,non-aerosol See Rx Instructions .ROUTE .COMPLEX Qty: 30 5RF Rx Instructions: USE 1-2 SPRAYS EACH NOSTRIL 1-2 TIMES DAILY.; administer into each nostril cyanocobalamin (vitamin B-12) [Vitamin B-12] 5,000 mcg/mL Drops 5,000 mcg SUBLINGUAL DAILY fluticasone propionate 110 mcg/actuation HFA aerosol inhaler 2 puff inhalation QAM Discontinued oxycodone-acetaminophen 5-325 mg tablet 1 tab PO Q8H PRN (Reason: pain) Qty: 6 0RF Rx Instructions: [facility] ER 08/25/25 Discharge Orders: Discharge Order (Routine); Ordered 08/30/25 Ordered By: Kain Burden Admission Data Admit Date/Time: 08/26/25 15:09 Attending Provider: Kain Burden Admit Provider: Ilene Faulkner Primary Care Provider: Hernesto Mayers Other Providers: Ilene Faulkner; Quoc Keen Other Interventions: Discharge Summary Assessment (RN) Last Done: 08/30/25 14:45 Hospital Stay Data Consultations 08/26/25 12:48 ED Decision to Admit Stat 08/30/25 08:46 Consult Orthopedic Spine Surgery Routine Diagnostic Imagining Performed 08/26/25 18:46 MR lumbar spine wo con Urgent Pending Results Patient Have Any Pending Studies at Discharge: No Discharge Instructions Given to Patient (Per Discharging Provider) See your PCP Dr. Hernesto Mayers within 5-7 days of hospital discharge for (a) routine follow up visit, (b) to check repeat creatinine levels now that you are re-starting your home-scheduled HCTZ 12.5mg PO daily and continuing your home- scheduled losartan 100mg PO daily on hospital discharge home on 08/30/2025, and (c) to arrange for outpatient Pain Management Service Clinic evaluation to mitigate lower back pain. Total Time Total Time Spent Total Time Spent (In Minutes): 35 minutes. Of this time period, 19 minutes were spent in coordinating patient's discharge. Coding Level of Care Code 77879 INP/OBS DISCH >30 MIN Diagnoses Lumbar radiculopathy, acute M54.16 Intractable low back pain M54.59 Nausea R11.0 Type 2 diabetes mellitus E11.9
== END 2025-08-30 16:10 | disposition home or self-care (01) | DRG 552 ==
LOC: ED 11:20 → SUATTDRO 15:09 → EDINP 15:09 → 2N 18:20 → 3W 08-28 04:14